=== PATIENT | male | born 1955 | race Caucasian/White ===

== ENCOUNTER 2024-10-25 19:51 | Inpatient (IN) | payer MEDICARE, OTHER, SELFPAY ==
[2024-10-25] VITALS (56 sets, daily range): BP systolic 70–174; BP diastolic 39–99; PULSE 2–84
[2024-10-25 14:46] LABS: B.E. 5.1 mmol/L; HCO3 31.2 mmol/L (21-28); O2 Saturation % 91.6 % (94-98); PCO2 54 mmHg (35-48); PO2 60 mmHg (83-108); pH 7.37 (7.35-7.45)
[2024-10-25 15:10] LABS: Venous Blood Gas HCO3 33.1 mmol/L (22-27); Venous Blood Gas O2 Sat % 66.8 %; Venous Blood Gas pH 7.27 (7.32-7.43); Venous Blood Gas pO2 42 mmHg (30-50)
[2024-10-25 15:11] LABS: % Basophils 0.1 % (0-2); % Immature Granulocytes 2.8 % (0-0.5); % Lymphocytes 6.7 % (20.5-51.1); % Monocytes 6.7 % (1.7-9.3); % Neutrophils 83.7 % (42.2-75.2); Absolute Immature Granulocytes 0.6 10^3/uL (0-0.05); Absolute Lymphocytes 1.5 10^3/uL (1.2-3.4); Absolute Monocytes 1.5 10^3/uL (0.1-0.6); Absolute Neutrophils 18.7 10^3/uL (1.4-6.5); Hematocrit 24.8 % (39.0-52.0); Hemoglobin 8.1 g/dL (13.0-18.0); Mean Corp Hgb Conc. 32.7 g/dL (33.0-37.0); Mean Corpuscular Hgb 32.3 pg (27.0-31.0); Mean Corpuscular Volume 98.8 fL (80.0-94.0); Mean Platelet Volume 12.7 fL (7.4-10.4); Nucleated Red Blood Cells % 0.6 % (-); Platelet Count 190 10^3/uL (130-400); Red Blood Cell Count 2.51 10^6/uL (4.70-6.10); Red Cell Dist. Width 16.4 % (11.5-14.5); White Blood Cell Count 22.4 10^3/uL (4.8-10.8)
[2024-10-25 15:12] LABS: Venous Blood Gas pCO2 72 mmHg (35-48)
--- NOTE | 2024-10-25 15:17 | ED.GENMED ---
History of Present Illness
General
Chief Complaint: Breathing Problem
Source: patient, ambulance crew and physician
Exam Limitations: clinical condition
Time Seen by Provider: 10/25/24 14:11
History of Present Illness
History of Present Illness:
68-year-old male who presents with difficulty breathing and change in mental status while at [facility]. EMS reports the patient was just discharged from [facility]. The patient has a history of COPD. Also has a history of
A-fib and PE. Is anticoagulated. EMS arrived to find the patient with some respiratory distress but also somewhat somnolent. They started him on BiPAP and he became a little more alert. Reportedly the patient did not wear his BiPAP last and
refused. He also has a history of mitral stenosis and CHF. Further history was obtained from a physician at [facility]. The patient had a BUN of reportedly of 80s and a white count that was baseline around 19,000. His creatinine
was 1.3. The patient is able to nod answers to questions but cannot give detailed history. He arrives in mild respiratory distress and somnolent but opens his eyes to commands
Past History
Past History
ED Past Medical History: Arrthythmia (Atrial fibrillation), CHF, COPD, Hypercholesterolemia, NIDDM, Valvular disease (Severe mitral stenosis) and Other (Renal insufficiency)
ED Past Surgical History: Cardiac
Phy Exam
Physical Exam
Physical Exam:
CONSTITUTIONAL Patient has his eyes closed and is somnolent but does respond to verbal stimuli. Does lift his arms to command. ill-appearing. Vital signs reviewed.
HEAD atraumatic, normocephalic.
EYES eyelids normal to inspection, Extraocular muscles intact, Conjunctiva normal, Sclera normal.
NECK Trachea midline, no jugular venous distention.
RESPIRATORY CHEST moderate respiratory distress noted, Chest expansion equal, Rales bilaterally
CARDIOVASCULAR regular with ectopy
ABDOMEN No distention.
UPPER EXTREMITY no cyanosis, mild bilateral edema.
LOWER EXTREMITY no cyanosis, mild bilateral edema. Significant ecchymosis noted bilaterally that is scattered
NEURO opens his eyes to commands. Lifts his arms to commands..
SKIN left flank ecchymosis noted, ecchymosis throughout extremities noted as well
Scores
Heart Failure Risk
Heart Failure Risk Score: Not Applicable
Course
Orders/Labs/Results
Orders:
Orders
10/25/24 14:18
Electrocardiogram (*1) Routine
Reason for Study: Shortness of Breath
10/25/24 14:19
EKG- Treatment ONCE
CXR Port [CR Chest Portable - 1 View] Urgent
Comment:
Reason For Exam: sob
Reason Study Needs to be Portable: Unable to Transport
10/25/24 14:23
Arterial Blood Gas Urgent
%Oxygen/Room Air: 15
BNP [NT-proBNP] Urgent
COVID-19 Antigen Urgent
Source: Nasal Swab
Complete Blood Count/With Diff Urgent
Comprehensive Metabolic Panel Urgent
Lactate Level [Lactic Acid] Urgent
Magnesium Urgent
Troponin I Urgent
Venous Blood Gas Urgent
%Oxygen/Room Air: 15
Blood Culture Urgent
ALESSANDRO Source: Blood/Venous
Specimen Description:
Date Specimen was Collected: 10/25/24
Time Specimen was Collected: 14:20
Influenza A+B Rapid Molecular Urgent
ALESSANDRO Source: Nasal Swab
Specimen Description:
10/25/24 15:06
Blood Culture Urgent
ALESSANDRO Source: Blood/Venous
Specimen Description:
10/25/24 15:18
Dexamethasone Sod Phosphate [Decadron] 10 mg IV NOW STA
Ipratropium/Albuterol Sulfate [Duoneb] 3 ml INH R NOW STA
10/25/24 15:21
PT/INR [Prothrombin Time] Urgent
10/25/24 15:43
CT Head W/o Iv Contrast Urgent
Comment:
Reason For Exam: change in MS
10/25/24 15:53
Venous Blood Gas Urgent
%Oxygen/Room Air: 15L
10/25/24 16:07
Cefepime HCl [Maxipime] 2,000 mg IV NOW STA
MetroNIDAZOLE 500 MG/100 ML [Flagyl 500 mg] 100 ml IV NOW
Vancomycin [Vancocin] 2,000 mg 0.9% Sodium Chloride 500 ml [Nss] 500 ml IV NOW
10/25/24 16:21
Sterile Water [Sterile Water For Injection] 20 ml .ROUTE .STK-MED
10/25/24 17:14
Echo 2D MMode Color/Doppler Routine
Reason for Study: CHF
10/25/24 17:52
Obtain Records As Directed
Dates of Information to be Released: 10/10/24 -10/24/24
Type of Information Requested: Entire Record
Obtain Records from: [facility]
10/25/24 18:43
Admit/Transfer Patient As Directed
Co-Sign Provider:
Level of Care: Inpatient admission
Assign to:: ICU
Physician / Group: Hospitalist
Diagnosis: Acute on Chronic Hypoxic Respiratory Failure
Reason for Hospitalization: Oxygen, BiPAP, IV Antibiotics
Expected length of stay greater than two midnights?: Yes
ELOS- Estimated Length of Stay in days: 3
I certify the patient meets the requirements for IP care: Yes
PRN Pain Medication Management As Directed
May give lesser potent ordered pain med per pt: Yes
preference::
Protocol:: Medication orders for pain may be administered in a
manner that supports deferring to patient preference
when the pt is:
- Requesting an ordered lesser potent pain medication.
Least to most potent pain medications are defined
as: acetaminophen < NSAID < tramadol < opioids
(morphine, oxycodone, hydromorphone).
- Requesting a lesser dose of the same medication IF
ORDERED.
- Requesting a less intrusive route of administration
if both routes are prescribed by the provider (PO <
IV).
10/25/24 18:45
Code Status As Directed
Resuscitation Status: Full Code
10/25/24 19:12
ECG [Electrocardiogram (*1)] Stat
Reason for Study: Atrial Fibrillation
10/25/24 19:19
Sputum Culture [Respiratory Culture/Gram Stain] Routine
ALESSANDRO Source: Sputum
Specimen Description:
10/25/24 19:28
Ammonia Stat
Troponin I Stat
10/25/24 19:36
CT Chest/abd/pel Wo Iv Cont Routine
Comment:
Reason For Exam: Abdominal pain, hypoxia
10/25/24 19:41
Type+Screen Urgent
Arterial Blood Gas Urgent
%Oxygen/Room Air: 15L on BiPAP 09/05
Urinalysis Reflex To Culture Urgent
Date Specimen was Collected: 10/25/24
Time Specimen was Collected: 19:38
Urine Microscopic Reflex Cult Urgent
10/25/24 21:54
Lactic Acid Q4H
Comment: repeat q4 hours x 4 or until less than 2 mmol/L
Troponin I Q6H
Blood Culture Q30M
ALESSANDRO Source: Blood/Venous
Specimen Description:
Comment: IF NOT OBTAINED IN ED
Acetaminophen [Tylenol/Feverall] 650 mg RECTAL Q6HPRN PRN
Cefepime HCl [Maxipime] 1,000 mg IV Q12H
Hydrocortisone Sod Succinate [Solu-Cortef] 50 mg IV NOW STA
Ondansetron Injectable [Zofran] 4 mg IV Q6HPRN PRN
VANCOMYCIN Pharmacy to Dose [VANCOCIN Pharmacy to Dose] 1 each Pharmacy To Prepare [Call Pharmacy To Prepare] 0 ml IV PER PROTOCOL
10/25/24 21:54
CARDIOLOGY CONSULT Routine
Consulting Provider: Anel Kraus
Was physician already notified: Yes
HEMATOLOGY CONSULT Routine
Consulting Provider: Ronna Varner
Was physician already notified: Yes
INFECTIOUS DISEASE CONSULT Routine
Consulting Provider: An Shea
Was physician already notified: Yes
Strategy Planning Consultant Consult Routine
Consulting Provider: Ananya Richey
Was physician already notified: Yes
NEPHROLOGY CONSULT Routine
Consulting Provider: Fay Odell
Was physician already notified: Yes
Urinalysis Urgent
Comment: IF NOT OBTAINED IN ED
Legionella Urinary Antigen Routine
ALESSANDRO Source: Urine
Specimen Description:
MRSA Screen Routine
ALESSANDRO Source: Nose
Specimen Description:
Strep pneumoniae Antigen Routine
ALESSANDRO Source: Urine
Specimen Description:
Activity As Directed
Activity Level: Bedrest
Arterial Line As Directed
Instructions:: - to pressure bag and transducer
Bearden Catheter [Catheter- Indwelling] As Directed
Reason for insertion: Acute Retention
Discontinue Date/Time: 10/28/24 0600
Intake/ Output As Directed
Frequency: Per unit guidelines
PICC Line As Directed
Pneumatic Compression Sleeves As Directed
Type: Knee high
Comment: Left Only
Vital Signs As Directed
Frequency: Per unit guidelines
Weight As Directed
Frequency: Daily
O2 Therapy [RESP] Routine
Titrate/Wean O2 to maintain O2 sat greater than (%): 90
DX Deep Vein Thrombosis Video Routine
10/25/24 22:24
Blood Culture Q30M
ALESSANDRO Source: Blood/Venous
Specimen Description:
Comment: IF NOT OBTAINED IN ED
10/25/24 22:30
Doxycycline Hyclate [Vibramycin] 100 mg 0.9% Sodium Chloride 250 ml [Nss] 250 ml IV ONCE
10/25/24 23:00
Metoprolol [Lopressor] 7.5 mg IV Q4
10/26/24 01:54
Lactic Acid Q4H
Comment: repeat q4 hours x 4 or until less than 2 mmol/L
10/26/24 03:54
Troponin I Q6H
10/26/24 05:54
Lactic Acid Q4H
Comment: repeat q4 hours x 4 or until less than 2 mmol/L
10/26/24 06:00
Echo 2D MMode Color/Doppler IN AM
Reason for Study: CHF
Electrocardiogram (*1) IN AM
Reason for Study: Atrial Fibrillation
NPO
Allow oral meds: No
Allow clear liquids: No
Arterial Blood Gas IN AM
%Oxygen/Room Air: 15L BiPAP 16/8
Complete Blood Count/With Diff IN AM
Comprehensive Metabolic Panel IN AM
Cortisol, Random IN AM
Protime/PTT IN AM
CR Chest Portable - 1 View IN AM
Comment:
Reason For Exam: Pneumonia
Reason Study Needs to be Portable: Unable to Transport
10/26/24 07:30
Insulin Aspart Corrective Mod [Novolog Flexpen-Moderate Resistance] See Protocol SC AC
10/26/24 08:00
Doxycycline Hyclate [Vibramycin] 100 mg 0.9% Sodium Chloride 250 ml [Nss] 250 ml IV Q12
Furosemide [Lasix] 60 mg IV DAILY
Pantoprazole [Protonix IV] 40 mg IV DAILY
10/26/24 09:54
Lactic Acid Q4H
Comment: repeat q4 hours x 4 or until less than 2 mmol/L
Troponin I Q6H
10/26/24 15:54
Troponin I Q6H
10/27/24 06:00
Complete Blood Count/With Diff IN AM
Comprehensive Metabolic Panel IN AM
Protime/PTT IN AM
10/27/24 08:00
Hydrocortisone Sod Succinate [Solu-Cortef] 50 mg IV Q8
10/28/24 06:00
Complete Blood Count/With Diff IN AM
Comprehensive Metabolic Panel IN AM
10/29/24 06:00
Complete Blood Count/With Diff IN AM
Comprehensive Metabolic Panel IN AM
10/30/24 06:00
Complete Blood Count/With Diff IN AM
Comprehensive Metabolic Panel IN AM
10/31/24 06:00
Complete Blood Count/With Diff IN AM
Comprehensive Metabolic Panel IN AM
11/01/24 06:00
Complete Blood Count/With Diff IN AM
Comprehensive Metabolic Panel IN AM
11/02/24 06:00
Complete Blood Count/With Diff IN AM
Comprehensive Metabolic Panel IN AM
11/03/24 06:00
Complete Blood Count/With Diff IN AM
Comprehensive Metabolic Panel IN AM
11/04/24 06:00
Complete Blood Count/With Diff IN AM
Comprehensive Metabolic Panel IN AM
Abnormal Lab Results
10/25/24 10/25/24 10/25/24
14:23 15:21 15:53
WBC 22.4 H 10^3/uL
(4.8-10.8)
RBC 2.51 L 10^6/uL
(4.70-6.10)
Hgb 8.1 L g/dL
(13.0-18.0)
Hct 24.8 L %
(39.0-52.0)
MCV 98.8 H fL
(80.0-94.0)
MCH 32.3 H pg
(27.0-31.0)
MCHC 32.7 L g/dL
(33.0-37.0)
RDW 16.4 H %
(11.5-14.5)
MPV 12.7 H fL
(7.4-10.4)
Abs Immat Gran (auto) 0.6 H 10^3/uL
(0-0.05)
Absolute Neuts (auto) 18.7 H 10^3/uL
(1.4-6.5)
Absolute Monos (auto) 1.5 H 10^3/uL
(0.1-0.6)
Immature Gran % 2.8 H %
(0-0.5)
Neutrophils % 83.7 H %
(42.2-75.2)
Lymphocytes % 6.7 L %
(20.5-51.1)
PT 17.5 H Sec
(11.4-14.6)
pCO2 54 H mmHg
(35-48)
pO2 60 L mmHg
(83-108)
HCO3 31.2 H mmol/L
(21-28)
ABG O2 Sat (Measured) 91.6 L %
(94-98)
VBG pH 7.27 L 7.31 L
(7.32-7.43) (7.32-7.43)
VBG pCO2 72 H* mmHg 62 H mmHg
(35-48) (35-48)
VBG pO2 55 H mmHg
(30-50)
VBG HCO3 33.1 H mmol/L 31.2 H mmol/L
(22-27) (22-27)
Sodium 132 L mmol/L
(135-145)
Chloride 93 L mmol/L
(98-107)
Carbon Dioxide 35 H mmol/L
(22-30)
BUN 97 H mg/dl
(9-20)
Creatinine 2.0 H mg/dL
(0.7-1.3)
Glucose 308 H mg/dl
(70-99)
Lactic Acid 2.2 H mmol/L
(0.7-2.0)
Magnesium 2.5 H mg/dl
(1.6-2.3)
Total Bilirubin 1.6 H mg/dl
(0.2-1.3)
AST 431 H U/L
(17-59)
ALT 330 H U/L
(0-50)
Troponin I 55.200 H* ng/ml
Total Protein 5.2 L g/dl
(6.3-8.2)
Albumin 3.3 L g/dl
(3.5-5.0)
Ur Occult Blood Reflex
Urine RBC
Urine Bacteria (Reflex)
Urine Albumin (Reflex)
10/25/24 10/25/24
19:28 19:41
WBC
RBC
Hgb
Hct
MCV
MCH
MCHC
RDW
MPV
Abs Immat Gran (auto)
Absolute Neuts (auto)
Absolute Monos (auto)
Immature Gran %
Neutrophils %
Lymphocytes %
PT
pCO2
pO2 61 L mmHg
(83-108)
HCO3 28.5 H mmol/L
(21-28)
ABG O2 Sat (Measured) 92.5 L %
(94-98)
VBG pH
VBG pCO2
VBG pO2
VBG HCO3
Sodium
Chloride
Carbon Dioxide
BUN
Creatinine
Glucose
Lactic Acid
Magnesium
Total Bilirubin
AST
ALT
Troponin I 46.800 H* ng/ml
Total Protein
Albumin
Ur Occult Blood Reflex 1+ A
(Negative)
Urine RBC 3-6 A /HPF
(0-2)
Urine Bacteria (Reflex) Few A
(Negative)
Urine Albumin (Reflex) 2+ A
(Neg - Trace)
10/25/24 14:23
10/25/24 14:23
Vital Signs
Initial and Last Documented VS:
Initial Vital Signs
Temp
98.9 F
10/25/24 14:10
Last Documented Vital Signs
Temp Pulse Resp BP Pulse Ox
98.9 F 108 28 93/52 95
10/25/24 14:10 10/25/24 22:30 10/25/24 22:30 10/25/24 21:19 10/25/24 15:47
MDM/Problems Addressed
MDM/Problems Addressed:
Hypercarbic respiratory failure, hypoxia, chronic anemia, leukocytosis, markedly elevated troponin
*Radiology
Radiology exam reviewed: radiology read reviewed
*Pulse Oximetry
Patient hypoxic: yes
*EKG
Interpreted by ED Provider?: Yes
Interpretation: abnormal
Rate: normal
Rhythm: atrial flutter
[place]: left axis deviation
QRS Pattern: right bundle branch block
Ischemia: non-specific ST changes
*[employer] Ground Crew Supervisor Interpretation
Rate: normal
Interpretation: abnormal
Rhythm: atrial flutter
*Critical Care Note
Total Time (30-74mins, 75-104mins- exclusive of procedures): 80 minutes
Data Reviewed
Review of Other/Old Records Reveals: Labs (Labs reviewed from [facility] via physician at the hospital)
Source: patient and family (Family does state that his troponin was elevated at [place].)
Patient Management
Discussion with other providers: Hospitalist
Escalation/DeEscalation of care consider admission/obs:
Multiple reassessments. Patient fortunately does respond to his name but still very somnolent. Suspect metabolic encephalopathy. Question related to sepsis versus hypercapnia versus a multitude of causes including pneumonia. initially
stated that his troponin was elevated at same area but he states she is unsure of the number. Troponin here markedly elevated. Patient reassessed with the hospitalist later and considered intubation. Family at bedside and obviously would only
like intubation if absolutely necessary. Difficult decision in light of the fact that it may be difficult to get him off. During my reassessment he is able to respond to his name and seems to be protecting his airway. Dialed down O2 for now
continue BiPAP. Admit ICU. Broad-spectrum IV biotics
ED Attending Note
-
Portions of this chart may have been created with voice recognition software.� Occasional wrong word or��sound alike� substitutions may have occurred due to the inherent limitations of voice recognition software.
Discharge Plan
Departure
Patient Disposition: Admit
Date of Disposition: 10/25/24
Time of Disposition: 16:20
Admit to: ICU
Presentation/result/management discussed w/ accepting MD/DO: Hospitalist
Discharge Problem:
Acute metabolic encephalopathy, Acute hypercapnic respiratory failure, Pneumonia, Sepsis, Acute on chronic renal insufficiency, Elevated troponin
Interventions
Interventions:
*Risk Screen - Suicide Last Done: 10/25/24 14:10
*General Assessment Last Done: 10/25/24 14:10
*Neglect/Abuse Screening Last Done: 10/25/24 14:10
ED- Fall Risk Assessment Last Done: 10/25/24 21:31
*ED COVID-19 Vaccine History Last Done: 10/25/24 14:10
*Nursing Disposition Last Done: 10/25/24 21:31
ED- Cardiac Assessment Last Done: 10/25/24 14:29
ED- Pulmonary Assessment Last Done: 10/25/24 14:27
Discharge Date and Time
Discharge Date/Time: 10/25/24 21:00
[2024-10-25 15:21] LABS: COVID-19 Antigen Negative (Negative)
[2024-10-25 15:23] LABS: Lactic Acid 2.2 mmol/L (0.7-2.0)
[2024-10-25 15:24] LABS: ALT (SGPT) 330 U/L (0-50); AST (SGOT) 431 U/L (17-59); Albumin 3.3 g/dl (3.5-5.0); Alkaline Phosphatase 122 U/L (38-126); Blood Urea Nitrogen 97 mg/dl (9-20); Calcium 9.7 mg/dl (8.4-10.2); Carbon Dioxide 35 mmol/L (22-30); Chloride 93 mmol/L (98-107); Glucose 308 mg/dl (70-99); Magnesium 2.5 mg/dl (1.6-2.3); Potassium 5.1 mmol/L (3.5-5.1); Sodium 132 mmol/L (135-145); Total Bilirubin 1.6 mg/dl (0.2-1.3); Total Protein 5.2 g/dl (6.3-8.2); eGFR 35.46
[2024-10-25 15:37] LABS: NT-proBNP 25200 pg/ml
[2024-10-25] MEDS: DUONEB 3 ML INH ×2 (15:42→22:30)
[2024-10-25 15:45] LABS: INR 1.41; PT 17.5 Sec (11.4-14.6)
[2024-10-25] MEDS: DECADRON 10 MG IV (15:56)
[2024-10-25 16:07] LABS: Venous Blood Gas B.E. 4.1 mmol/L (-4 to +4); Venous Blood Gas HCO3 31.2 mmol/L (22-27); Venous Blood Gas O2 Sat % 86.8 %; Venous Blood Gas pCO2 62 mmHg (35-48); Venous Blood Gas pH 7.31 (7.32-7.43); Venous Blood Gas pO2 55 mmHg (30-50)
[2024-10-25] MEDS: MAXIPIME 2000 MG IV (16:25)
[2024-10-25] MEDS: FLAGYL 500 MG 100 IV (16:36)
--- NOTE | 2024-10-25 17:13 | HPS.HSE ---
Addendum entered and electronically signed by Nabila Martinez MD 10/25/24 21:32:
I personally performed a history and physical exam of the patient and discussed management with the resident. I reviewed the resident's note and agree with the documented findings and plan of care HPI/CC.
GENERAL: well developed, well nourished, male not terribly responsive--on BiPAP
HEENT: NC/AT--BiPAP 16/8 on 15L O2
HEART: irreg irreg
LUNGS : clear to auscultation bilaterally
ABDOM: soft, tender lower abdomen without guarding or rebound, nondistended, + bowel sounds
EXT: no cyanosis, clubbing-- 2+ LE edema
NEUROLOGIC: lethargic--rouses to name but will not stay awake or follow commands
: circumcised male--diaper dry
SKIN: diffuse ecchymosis throughout arms/lags large one on left abdomen/flank
acute on chronic hypoxemic resp failure with encephalopathy--thought pt might be retaining CO2-- placed on BiPAP--no real improvement in mental status--head CT neg--consult pulm--admit to ICU--cont bipap, wean O2 as able--uses 4L through BiPAP at
home (settings are 07/07)--NPO for now--speech eval in AM
sepsis--likely due to pna--consult ID--cont vanco/zosyn/doxy--check urine strep and legionella--check blood, urine cultures--follow CXR and WBC count--no need for pressors at this time--stress dose steroids--await CT scans chest/abdomen/pelvis
NSTEMI/new aflutter/CHF unknown type/mitral stenosis/Aortic stenosis with bovine valve replacement--troponin 55 with pro BNP 25,000--trend troponin and EKG (not ACS or STEMI)--check ECHO--diuresis and follow creat--consult cards--hold oral
bumex--give IV lasix BID for now--change toprol XL to IV metoprolol with holding parameters
NATHANIEL on CKD stage unknown (baseline creat 1.3)--sinclair cath--hold IVF and BP adequate and needs diuresis--renal dose meds--consult renal
leukocytosis--likely due to sepsis/pna--follow for now--await heme input
anemia--likely of chronic disease--other than ecchymosis, no active bleeding noted--check ferritin, iron, TIBC, %sat, folate, B12 levels--await heme
hx of ITP?--platelets 'run low' per and needs steroids to increase them--await heme input
new diagnosis of RA--pt slow to get moving in the morning but by afternoon moving much better--not on DMARD therapy as yet
JOSE --likely chronic hypercapnia with metabolic compensation--HCO3 =38--blood gases being followed--pH 7.41 with pCO2 45--cont BiPAP, wean to outpt settings as able
type 2 DM--sugar 308--hold prandin--cont NPO--SSI, check HGB A1C
transaminitis--?due to sepsis, drugs?--consider checking hepatitis panels--await CT scans--pt does not drink ETOH
positive cologard test--outpt work up
gout--hold allopurinol
hypothyroid--check TSH--hold synthroid for now
prednisone dependent COPD/asthma--cont nebs as able--hold prednisone and do stress dose steroids
HLD--hold Lipitor for now
chronic pain with narcotic dependency?--? due to RA--hold percocet/tramadol--for now--limit narcotics--on stress dose steroids
HX of DVT/PE--hold xarelto for now--with ecchymosis, hold on IV heparin
skin graft to right leg from? cellulitis--wound care consult
hyponatremia--likely due to volume overload--follow with diuresis
Mechanical Fall w/ reported trauma to R chest wall- Unable to obtain proper history from patient due to encephalopathy-- explained pt had complaints of suprapubic pain and dysuria--Patient tender to palpation- large ecchymotic lesions on the R/L
flanks- Will obtain CT chest/Abd/pel w/o contrast due to NATHANIEL--will need PT/OT
DVT proph--SCD
code status--FULL CODE
need records from [facility]--hospitalized there after fall--10/10 through 10/24--sent from [facility]
Total Critical Care Time 3 hours. I was immediately available to the patient and staff. I personally examined, reviewed labs, diagnostic images/reports, interpretations, treatment plans, discussed patient care with other providers and family or
caregivers (if patient is unable to make decisions), entered orders as appropriate and documented the medical record.
Original Note:
Family Physician
-
Family Physician: Kavon Andres
Chief Complaint
-
Altered Mental Status
History of Present Illness
68 year old man who [facility] of altered [facility] status. The and son were at bedside and provided history.
The patient was admitted to [facility] on 10/10 after sustaining a mechanical fall and landing on his R side. He was taken to the [facility] where a CXR was done which revealed pneumonia. He was kept and treated for pneumonia with
antibiotics and steroids for his history of COPD. While in [facility] he was found to have Afib which was a new diagnosis. He was put on blood thinners. The decision was made to discharge him on 10/24/24 to [facility] for rehab. The
states that she gave him all his usual medications in the evening and he was kept on BiPAP. The and son returned in the morning on the day of presentation to find the patient was disoriented and minimally responsive with altered mental status
and so he was brought to .
They report as well that he had a recently positive cologuard test for which they had scheduled a follow up with for 10/10/24, however they never went because the patient had a fall and was admitted to [facility].
The also reports that the patient was complaining of lower abdominal pain when urinating. They report that he had a catheter in during his hospitalization but she is not sure why. he d
Medical History
Past Medical History
Past Medical History: Reports Arrhythmia, CAD, CHF, COPD, HTN, Hypercholesterolemia, Hypothyroidism, NIDDM and Renal Failure
Additional Past Medical History:
History of PE, Sleep Apnea, GERD, RBBB, Prosthetic Valve
Past Surgical History: Reports Other
Additional Past Surgical History:
Aortic Valve Replacement, Coronary Artery Stenting 2016
Social History
Tobacco: Smoker (>50 ppy)
Alcohol: None
Drug: None
Personal:
Living: With Family
Family History
Family History: Not pertinent
Allergies / Home Medications
Allergies reflects when Allergies were last updated in [facility].
Home Medications with original date entered in [facility]
Allergy/Medication List:
Allergies
Allergy/AdvReac Type Severity Reaction Status Date / Time
hydromorphone [From Dilaudid] Allergy Unknown Verified 10/25/24 15:47
Home Medications
acetaminophen 325 mg tablet (Tylenol) 650 mg PO Q6HPRN PRN mild pain 10/25/24
albuterol sulfate 90 mcg/actuation aerosol inhaler 2 puff inhalation R Q6HPRN PRN sob 10/25/24
allopurinol 300 mg tablet 300 mg PO DAILY 10/25/24
aspirin 325 mg tablet 325 mg PO DAILY 10/25/24
atorvastatin 40 mg tablet (Lipitor) 40 mg PO HS 10/25/24
bisacodyl 10 mg rectal suppository (Dulcolax (bisacodyl)) 10 mg NM DAILYPRN PRN if no bm aftr mom 10/25/24
bumetanide 1 mg tablet 3 mg PO DAILY 10/25/24
cholecalciferol (vitamin D3) 10 mcg (400 unit) tablet (Vitamin D3) 10 mcg PO DAILY 10/25/24
coQ10 (ubiquinol) 100 mg capsule 30 mg PO DAILY 10/25/24
diltiazem HCl 120 mg capsule,extended release 24 hr 120 mg PO DAILY 10/25/24
docusate sodium 100 mg capsule (Colace) 100 mg PO DAILY 10/25/24
ferrous sulfate 325 mg (65 mg iron) tablet 325 mg PO DAILY 10/25/24
gabapentin 300 mg capsule 300 mg PO TID 10/25/24
levothyroxine 125 mcg tablet (Synthroid) 125 mcg PO DAILY 10/25/24
magnesium hydroxide 400 mg/5 mL oral suspension (Milk of Magnesia) 2,400 mg PO DAILYPRN PRN i fno bm by 3rd day 10/25/24
magnesium oxide 400 mg PO DAILY 10/25/24
metoprolol succinate 100 mg tablet,extended release 24 hr (Toprol XL) 100 mg PO BID 10/25/24
ondansetron HCl 4 mg tablet 4 mg PO Q8HPRN PRN nausea 10/25/24
oxycodone-acetaminophen 10 mg-325 mg tablet (Percocet) 1 tab PO Q6HPRN PRN severe pains 10/25/24
pantoprazole 40 mg tablet,delayed release (Protonix) 40 mg PO DAILY 10/25/24
polyethylene glycol 3350 17 gram oral powder packet (Miralax) 17 g PO DAILYPRN PRN constipation 10/25/24
prednisone 10 mg tablet 40 mg PO DAILY 10/25/24
prednisone 10 mg tablets in a dose pack 10 mg PO DIRECTED 10/25/24
repaglinide 1 mg tablet 1 mg PO DAILYPRN PRN if bs above 250 10/25/24
rivaroxaban 15 mg tablet (Xarelto) 15 mg PO DAILY 10/25/24
sodium phosphates 19 gram-7 gram/118 mL enema (Fleet Enema) 118 ml NM DAILYPRN PRN if no bm aftr dulcolax 10/25/24
sucralfate 1 gram tablet (Carafate) 1 g PO BID 10/25/24
therapeutic multivitamin 1 tab PO DAILY 10/25/24
tramadol 50 mg tablet 50 mg PO Q8HPRN PRN moderate pains 10/25/24
zolpidem 12.5 mg tablet,extended release,multiphase (Ambien CR) 12.5 mg PO HSPRN PRN sleep 10/25/24
Review of Systems
-
Unable to obtain full review of systems at this time due to: Other (Patient unstable and minimally responsive)
History Source: Patient and Family
A 12 point ROS was completed and negative except as noted: Yes
Constitutional: Denies Fever, Night Sweats or Chills
EENT: Denies Sore Throat or Runny Nose
Respiratory: Reports Trouble Breathing; Denies Cough or Hemoptysis
Cardiac: Denies Chest Pain, Diaphoresis or Palpitations
Abdomen/GI: Reports Abdominal Pain; Denies Nausea, Vomiting or Diarrhea
: Reports Dysuria and Sinclair
Musculoskeletal: Reports Edema; Denies Joint Swelling or Muscle Pain
Skin: Reports No Symptoms
Neurological: Denies Headache or Numbness
Endocrine: Reports No Symptoms
Hematologic/Lymphatic: Reports Bruising
Psych: Reports No Symptoms
Physical Exam
Vital Signs
Vital Signs
Pulse Resp BP Pulse Ox
74 18 104/56 95
10/25/24 16:30 10/25/24 16:30 10/25/24 16:30 10/25/24 15:47
Physical Exam
General: Well Developed, Well Nourished, Respiratory Distress, Appears Chronically Ill and Obese; No Fever or Chills
HEENT: NormoCephalic, Anicteric, Atraumatic, PERRLA, Nose Appears Normal, Ears Appear Normal and Oxygen (BiPAP 15L)
Respiratory: Wheezes, Accessory Resp Muscle Use and Other (BiPAP, asynchronous breaths); No Rales
Cardiac: S1/S2 and Irregular Rhythm; No Murmur or Rub
Breast: N/A
GI: Soft, Normal Bowel Sounds, Tender and Distended
Rectal: Deferred by Provider
Genito-urinary: Other (Distended bladder)
Musculoskeletal: No Clubbing, No Cyanosis, Edema, Left Lower Extremity and Edema, Right Lower Extremity
Skin: Warm, Dry, IV/Catheter Site and Other (Scattered ecchymosis on the BL UE with two very large ecchymotic lesions on the BL flanks extending towards the midline)
Neuro: Awake and Oriented (Oriented to Place only)
Hematologic/Lymphatic: Other (No inguinal lymphadenopathy)
Laboratory Results
-
10/25/24 14:23
10/25/24 14:
Laboratory Results
PT 17.5 Sec (11.4-14.6) H 10/25/24 15:21
INR 1.41 10/25/24 15:21
pH 7.37 (7.35-7.45) 10/25/24 14:
pCO2 54 mmHg (35-48) H 10/25/24 14:
pO2 60 mmHg (83-108) L 10/25/24 14:
HCO3 31.2 mmol/L (21-28) H 10/25/24 14:23
Lactic Acid 2.2 mmol/L (0.7-2.0) H 10/25/24 14:
Total Bilirubin 1.6 mg/dl (0.2-1.3) H 10/25/24 14:23
AST 431 U/L (17-59) H 10/25/24 14:23
ALT 330 U/L (0-50) H 10/25/24 14:
Alkaline Phosphatase 122 U/L (38-126) 10/25/24 14:23
Troponin I 55.200 ng/ml H* 10/25/24 14:23
Impression/Plan
-
68 year old male with a complex past medical history who is not known to DH
#Acute on Chronic Hypoxic Respiratory Failure
- On BiPAP at home (4L, 14/10), requiring 10L, 16/8 right now. S/p x1 duoneb in ED
- VBG on admission showed PCO2 72 w/ PH of 7.27; repeat ABG after several hours on BiPAP showing 45 w/ pH of 7.41.
- Minimally responsive on current BiPAP, however saturations are 90s
- Will admit to ICU, unclaimed property officer consulted
- repeat ABG tonight and in the AM.
#Altered Mental Status, possibly secondary to Hypercapnia from AHRF
- Head CT showing no acute intracranial abnormalities.
- mentation somewhat improved on BiPAP.
- Ammonia levels pending
#Possible NSTEMI
#H/o Coronary Artery Stenting
- Troponins elevated to 55; repeat pending.
- ECG showing rate controlled A flutter. Repeat ECG showing the same. Will repeat ECG in the am.
- Cardiology following.
#Acute Exacerbation of CHF
#Severe Mitral Valve Stenosis
- no prior echo, on 3mg Bumex as outpatient, pitting edema on exam, ProBNP 12496, will obtain Echo in the AM.
- 60mg IV Lasix qd
- Cardiology and nephro following
#Sepsis, likely secondary to Pneumonia
- patient w/ leukocytosis, lactic acidosis, tachypnea on presentation with possible source of infection (PNA)
- BCx and Sputum cultures pending. UA pending.
- Given one dose of IV Vancomycin/Cefepime/Flagyl. Now on IV Doxy (for NPO), Vancomycin, and Cefepime 1gm q12 for CrCl of 21.
- COVID/Flu (-), pending urine strep/legionella/MRSA
- Holding fluids in the setting of likely CHF exacerbation
- ID Following
#Pneumonia, likely present on admission - H/o hospitalization for PNA at [facility] (will obtain records). CXR showing Mid LL and RLL consolidation. On Abx as above. Follow cultures as above.
#Paroxysmal Afib
- ECG shows rate control, will repeat in the AM.
- Holding home meds as patient is NPO.
- Will start on IV Lopressor 7.5mg Q4
- Cardiology following
#NATHANIEL on CKD, likely multifactorial (post/pre renal)
- Parking Supervisor reportedly 1.3 at [facility], in ED 2.0. BUN 97.
- UA pending.
- nephro following; OK for diuresis as above.
- Will place Sinclair
- Check CMP in the AM
#Abdominal/Suprapubic Pain?
#Mechanical Fall w/ reported trauma to R chest wall
- Unable to obtain proper history from patient due to AMS. explained pt had complaints of suprapubic pain and dysuria. Patient tender to palpation in the RUQ.
- large ecchymotic lesions on the R/L flanks
- Will obtain CT chest/Abd/pel w/o contrast due to NATHANIEL
#Possible Colonic Neoplasm? - reports a positive cologuard test. Had follow up scheduled for 10/10/24, however never went due to prior hospitalization at [facility].
#NIDDM - Glucose on admission 308. Holding oral antiglycemic agents at this time. patient not one home insulin and NPO. Will start on MDISS.
#Anemia - Hgb 8.1 on admission; no prior lab values. Pending records from [facility]. Will transfuse if Hgb <7. patient's consented.
#Transaminitis, cause uncertain - Tbili/AST/ALT 1.6/431/330. Unclear history. Could be component of sepsis vs. hepatobiliary pathology vs. iatrogenic. Will continue to monitor.
#COPD - On chronic prednisone as outpatient. Given Decadron in ED. Will continue with stress dose steroids Hydrocortisone 50mg q8. Still on BiPAP. Will hold Duonebs/Albuterol for now.
#Essential Hypertension - holding home medications due to NPO. On Lopressor IV. Cardiology following.
#Sleep Apnea - On BiPAP.
#Rheumatoid Arthritis - not on DMARDs
#Gout - holding allopurinol
#Hypothyroidism - holding levothyroxine
#H/o Nephrolithiasis
#H/o PE
Diet - NPO
DVT PPx - Rectal Aspirin for tonight, will re-evaluate in AM
Code Status - Full Code
[2024-10-25] MEDS: VANCOCIN 540 MG IV (18:45)
[2024-10-25 19:56] LABS: B.E. 3.4 mmol/L; HCO3 28.5 mmol/L (21-28); O2 Saturation % 92.5 % (94-98); PCO2 45 mmHg (35-48); PO2 61 mmHg (83-108); pH 7.41 (7.35-7.45)
[2024-10-25 20:36] LABS: Ammonia 12 umol/L (9-30)
[2024-10-25 21:15] LABS: Urine Albumin 2+ (Neg - Trace); Urine Bilirubin Negative (Negative); Urine Character Clear (Clear); Urine Color Yellow; Urine Glucose Negative (Negative); Urine Ketone Negative (Negative); Urine Leukocyte Negative (Negative); Urine Nitrite Negative (Negative); Urine Occult Blood 1+ (Negative); Urine Urobilinogen 1+ (Neg - 1+)
[2024-10-25 21:48] LABS: Urine Bacteria Few (Negative); Urine Hyaline Cast >15 /LPF (0-2); Urine White Cell 0-2 /HPF (0-5)
--- NOTE | 2024-10-25 22:21 | W.PN.ANESINT ---
Anesthesia Intubation Note
- Intubation Note
Intubation Note:
Diagnosis: Cardiac Arrest
Blade: glidescope
Tube Size: 8.0 hilo
Depth: 24 cm @lip
Side Taped: right
Drugs Used: none , CPR in progress upon arrival, unresponsive
Grade View: 2
EtCO2 Present: yes
Atraumatic: yes
Attempts: 1
Insertion Start and Stop Time: 22:08-22:09
SaO2 Pre: none
SaO2 Post: 91
Glidescope Used: yes
Other Airway Adjustments: none
Pre-Oxygenated: yes
Portable Chest X-Ray: yes
RSI: yes
Suctioned: yes
Bilateral Breath Sounds Confirmed: yes
Vent Settings:
Settings per ___Attending Physician
--- NOTE | 2024-10-25 22:26 | PHA.VAN.IN ---
Assessment
- Assessment
Renal Function: Unknown baseline (SCR reported as ~1.3 at OSH - SCR currently elevated at 2)
Concomitant Antimicrobials: cefepime, doxycycline
Plan
- Plan
Initial / Loading Dose: 2000mg - 10/25 18:45
Maintenance Regimen: dosing by level
Monitoring: random 10/26 0600
MRSA Screen: Ordered per protocol
Pharmacokinetics Vancomycin I
- -
Patient Age: 68
Patient Sex: Male
Vancomycin Day #: 1
Indication: Pulmonary/Respiratory
Requesting Provider: Dr. Rose (resident)
Pertinent Antimicrobial Allergies:
no pertinent antibiotic allergies
Height / Weight:
Height 5 ft 6 in
Actual Weight 93 kg
Pertinent Past Medical History: BMI ~33, COPD (prednisone), DM, s/p CPR 10/25/24
- Vital Signs / Lab Results
Temp Pulse Resp BP Pulse Ox
98.9 F 89 31 93/52 95
10/25/24 14:10 10/25/24 21:19 10/25/24 21:19 10/25/24 21:19 10/25/24 15:47
Lab Results - Hematology
10/25/24
14:23
WBC 22.4 H
Lab Results - Chemistry
10/25/24
14:23
BUN 97 H
Creatinine 2.0 H
Albumin 3.3 L
10/25/24
14:23
Lactic Acid 2.2 H
Lab Results - Urine
10/25/24
19:41
Urine Nitrite (Reflex) Negative
Leukocyte Esterase Rfl Negative
Urine WBC (Reflex) 0-2
Ur Squamous Epith Cells 3-5
Urine Bacteria (Reflex) Few A
Microbiology Results
10/25/24 14:23 Influenza Types A & B (KEN) - Final
Nasal Swab Negative for Influenza A & B, NAAT
Negative results must be combined with clinical observations
and patient history.
Nucleic Acid Amplification test (NAAT)performed on the
[employer] NOW platform.
[2024-10-25] MEDS: LEVOPHED 250 IV (22:38)
[2024-10-25] MEDS: SOLU-CORTEF 50 MG IV (22:45)
[2024-10-25 22:47] LABS: Hematocrit 23.3 % (39.0-52.0); Hemoglobin 7.6 g/dL (13.0-18.0); Mean Corp Hgb Conc. 32.6 g/dL (33.0-37.0); Mean Corpuscular Hgb 32.8 pg (27.0-31.0); Mean Corpuscular Volume 100.4 fL (80.0-94.0); Mean Platelet Volume 12.4 fL (7.4-10.4); Platelet Count 141 10^3/uL (130-400); Red Blood Cell Count 2.32 10^6/uL (4.70-6.10); Red Cell Dist. Width 16.5 % (11.5-14.5); White Blood Cell Count 29.5 10^3/uL (4.8-10.8)
[2024-10-25 22:51] LABS: Lactic Acid 9.8 mmol/L (0.7-2.0)
[2024-10-25 22:52] LABS: Blood Urea Nitrogen 101 mg/dl (9-20); Calcium 8.6 mg/dl (8.4-10.2); Carbon Dioxide 23 mmol/L (22-30); Chloride 94 mmol/L (98-107); Estimated Creatinine Clearance 32 ml/min; Glucose 288 mg/dl (70-99); Magnesium 2.9 mg/dl (1.6-2.3); Potassium 6.7 mmol/L (3.5-5.1); Sodium 131 mmol/L (135-145); eGFR 29.99
[2024-10-25] MEDS: VIBRAMYCIN 260 MG IV (23:03)
[2024-10-25] MEDS: DEXTROSE 50% SYRINGE 25 GRAMS IV (23:17)
[2024-10-25] MEDS: SUBLIMAZE 50 MCG IV (23:17)
[2024-10-25] MEDS: NOVOLIN R 10 UNITS IV (23:17)
[2024-10-25 23:25] LABS: Glucose - Point of Care 308 mg/dl (70-99)
[2024-10-26] VITALS (27 sets, daily range): BP systolic 94–148; BP diastolic 40–88; BMI 31.7
[2024-10-26 00:07] LABS: Glucose - Point of Care 359 mg/dl (70-99)
--- NOTE | 2024-10-26 00:10 | W.PN.UPDATE ---
Update Note
Progress Note Update
2200 Code call: On arrival CPR started, receiving round one of CPR, pulse check resulting in continue asystole, �another round of CPR, EPI given, and intubated. ROSC regain after second round of CPR. �
�
According to nurse patient arrived confused on Bipap, while doing wound care, blood pressure and pulse ox decrease, a patient then went asystolic on monitor. �CPR started.
2300 updated. According to nurse patient was able to responded to her when calling his name.
�
[2024-10-26] MEDS: NOVOLIN R 8 UNITS IV (00:47)
[2024-10-26] MEDS: NOVOLIN R INSULIN INFUSION 100 IV ×3 (00:49→07:37)
[2024-10-26] MEDS: STERILE WATER FOR INJECTION 10 ML IV (00:50)
[2024-10-26] MEDS: MAXIPIME 1000 MG IV (00:50)
[2024-10-26 00:53] LABS: B.E. -8.1 mmol/L; HCO3 17.8 mmol/L (21-28); O2 Saturation % 98.9 % (94-98); PCO2 37 mmHg (35-48); PO2 234 mmHg (83-108); pH 7.29 (7.35-7.45)
[2024-10-26 00:54] LABS: O2 Therapy 2L NC
--- NOTE | 2024-10-26 01:02 | VATNOTE ---
PICC ORDERED IN EMR. SPOKE AT BEDSIDE WITH PCN . NO NEED FOR CVAD AT THIS TIME. PT WITH ADEQUATE IV ACCESS. WILL INSERT ML FOR ADDITIONAL ACCESS AND LAB DRAWS NEEDED. CONFIRMED WITH ZIG ZAG SPRING MACHINE OPERATOR. ML INSERTED DOCUMENTED.
[2024-10-26 02:08] LABS: Glucose - Point of Care 267 mg/dl (70-99)
--- NOTE | 2024-10-26 03:09 | PTCARENOTE ---
Late entry: Pt arrived to ICU room 3361 via stretcher at approx 2110. Received pt on Bipap 8 with O2 at 10LPM. Pt confused, able to state his full name and birthday but not oriented to place/time/situation. Not making appropriate conversation but
would verbalize when he was in pain when wound care being done, stated that his ring was hurting him (wedding band--since removed and given to pt's ). Difficult to obtain accurate pulse ox reading when he first arrived due to cold extremities,
would intermittently merchandise pickup/receiving associate and read in low 90s and then disappear, multiple pulse ox probes and sites tried. Physical assessment completed (see nursing shift assessment flowsheet for full details), new IV placed. Pt's BP then started reading
lower, which had not been an issue before--reading in 60s-70s systolic. Briefly left room to get some more supplies and upon returning, pt's monitor started alarming asystole. No pulse found. CPR started and Code 9 called at 2200. Two rounds of CPR
done, 1 epi given and ROSC achieved. Pt intubated with #8 ETT, 24cm at lip. Initial vent settings AC 20/500/100/5, RR turned down to 12 shortly afterwards. Levophed started at 2238 d/t hypotension, goal to keep MAP >65. Repeat labs had been obtained
just after achieving ROSC. K+ critically high, insulin + D50 given (see EMAR). Pt's blood sugar high, insulin drip started per critical care glycemic protocol (see flowsheet for details). VAT team at bedside and placed RUE midline.
[2024-10-26 03:13] LABS: Glucose - Point of Care 350 mg/dl (70-99)
[2024-10-26] MEDS: SUBLIMAZE 100 IV ×2 (03:58→21:44)
[2024-10-26] MEDS: SUBLIMAZE 50 MCG IV ×4 (03:58→18:33)
[2024-10-26 04:13] LABS: Hematocrit 21.9 % (39.0-52.0); Hemoglobin 7.1 g/dL (13.0-18.0); Mean Corp Hgb Conc. 32.4 g/dL (33.0-37.0); Mean Corpuscular Hgb 32.3 pg (27.0-31.0); Mean Corpuscular Volume 99.5 fL (80.0-94.0); Platelet Count 133 10^3/uL (130-400); Red Cell Dist. Width 16.3 % (11.5-14.5); White Blood Cell Count 30.2 10^3/uL (4.8-10.8)
[2024-10-26 04:18] LABS: Glucose - Point of Care 310 mg/dl (70-99)
--- NOTE | 2024-10-26 04:20 | W.PN.UPDATE ---
Update Note
Progress Note Update
Procedure Note: Arterial Line�
� Left Wrist Arrow 20 (11/25)�
Diagnosis:��Cardiac arrest, sepsis
IV Line Comments: Uneventful Procedure�
Yong's test completed pre-procedure: Yes�
A-Line Comments: Sterile technique as per standard protocol, Ultrasound guided insertion�
Functioning A-line in situ: Yes�
A-line Insertion Start Time:�0400�
A-line in at:��0405
[2024-10-26 04:27] LABS: APTT 40.4 Sec (23.4-35.0); INR 2.41; PT 26.3 Sec (11.4-14.6)
[2024-10-26 04:29] LABS: Lactic Acid 6.1 mmol/L (0.7-2.0)
[2024-10-26 04:55] LABS: Albumin 2.8 g/dl (3.5-5.0); Alkaline Phosphatase 117 U/L (38-126); Blood Urea Nitrogen 109 mg/dl (9-20); Calcium 8.8 mg/dl (8.4-10.2); Carbon Dioxide 23 mmol/L (22-30); Chloride 97 mmol/L (98-107); Estimated Creatinine Clearance 27 ml/min; Glucose 268 mg/dl (70-99); Iron 162 ug/dl (49-181); Magnesium 2.6 mg/dl (1.6-2.3); Percent Saturation 68 % (20-50); Phosphorus 6.4 mg/dl (2.5-4.5); Potassium 5.1 mmol/L (3.5-5.1); Sodium 133 mmol/L (135-145); Total Bilirubin 2.9 mg/dl (0.2-1.3); Total Iron Binding Capacity 238 ug/dl (261-462); Total Protein 4.9 g/dl (6.3-8.2); eGFR 24.74
[2024-10-26 05:02] LABS: TSH Reflex To Free T4 1.05 uIU/ml (0.47-4.68)
[2024-10-26 05:14] LABS: ALT (SGPT) > 7500 U/L (0-50); AST (SGOT) > 7500 U/L (17-59)
[2024-10-26 05:35] LABS: Glucose - Point of Care 286 mg/dl (70-99)
[2024-10-26 05:37] LABS: Folate > 20.0 ng/ml (2.76-20); Vitamin B12 > 1000 pg/ml (239-931)
[2024-10-26 05:44] LABS: Cortisol, Random 90.9 ug/dl
[2024-10-26 05:53] LABS: B.E. 0.7 mmol/L; HCO3 26.5 mmol/L (21-28); PCO2 48 mmHg (35-48); PO2 167 mmHg (83-108); pH 7.35 (7.35-7.45)
[2024-10-26 05:55] LABS: O2 Therapy 15L BiPAP 16/8
--- NOTE | 2024-10-26 06:19 | CON.INTV ---
Consultation
Consultation Request
Date/Time Consultation Requested: 10/25
Date/Time Consultation Performed: 10/26
Reason for Consultation: Critical care
Medical History
-
History of Present Illness:
History obtained from the chart and also some history from the , and reviewing medical records. Patient is a 68-year-old male with complex medical history, history of valvular disease mitral stenosis, aortic stenosis status post valve
replacement in the past, chronic kidney disease, recent fall with hospital stay at [facility] for 2 weeks, coronary disease, diabetes, history of pulm embolism, sleep apnea, right bundle branch block who was brought to [facility]
after change in mental status. Patient apparently was hospitalized at [facility], recently discharged 10/24/24. states that despite being at [facility] for 2 weeks, he was far from being back to his baseline. Prior to going to [facility], he was essentially bedbound, uses a chairlift to go up the steps, had a rollator. He initially went to [facility] because of a fall. He was brought to [facility] from the retirement because of mental status changes.
states that he normally takes Ambien and is on a BiPAP. Upon arrival to [facility], afebrile, pulse 108, breathing at 20, blood pressure 93/52, 95%. Troponin noted to be elevated at 55. Per ED records, family only wanted intubation if
absolutely necessary as intubation was being considered in the ED. Patient developed respiratory arrest and asystole at around 10:00 at night requiring CPR, 2 rounds of epinephrine with ROSC, Patient intubated. It is noted the patient has been
oozing from multiple sites
He is on chronic steroids according to for his COPD. He was also recently diagnosed with rheumatoid arthritis while at [facility]
He has had issues with chronic wounds, skin graft, unfortunate continues to smoke
.
PMH: Hypertension, hyperlipidemia, coronary disease coronary stent 2016,diabetes, history of chronic kidney disease III, history of pulm embolism 04/2024, hx of LLE cellulitis chronic wounds with skin graft, sleep apnea, valvular disease with
prosthetic valve in the past aortic valve replacement 2017 at [facility], hx of falls, COPD/Asthma, hypothyroidism, hx of RA per blood work.
Past Medical History
Past Medical History: None (see above)
Past Surgical History: None (see above)
Social History
Tobacco: Smoker (50+ pack year, still smokes about 6 cigarettes a day)
Alcohol: None
Drug: None
Personal:
Living: With Family and [facility] (presently at [place] )
Employment: Retired
Family History
Family History: Unable to Obtain
Allergies / Home Medications
Allergies
Allergy/AdvReac Type Severity Reaction Status Date / Time
hydromorphone [From Dilaudid] Allergy Unknown Verified 10/25/24 15:47
Home Medications
�Medication �Instructions �Recorded �Confirmed �Last Taken �Type
acetaminophen 325 mg tablet 650 mg PO Q6HPRN PRN mild pain 10/25/24 10/25/24 Unknown History
(Tylenol)
albuterol sulfate 90 mcg/actuation 2 puff inhalation R Q6HPRN PRN sob 10/25/24 10/25/24 Unknown History
aerosol inhaler
allopurinol 300 mg tablet 300 mg PO DAILY 10/25/24 10/25/24 Unknown History
aspirin 325 mg tablet 325 mg PO DAILY 10/25/24 10/25/24 Unknown History
atorvastatin 40 mg tablet (Lipitor) 40 mg PO HS 10/25/24 10/25/24 Unknown History
bisacodyl 10 mg rectal suppository 10 mg CA DAILYPRN PRN if no bm 10/25/24 10/25/24 Unknown History
(Dulcolax (bisacodyl)) aftr mom
bumetanide 1 mg tablet 3 mg PO DAILY 10/25/24 10/25/24 Unknown History
cholecalciferol (vitamin D3) 10 10 mcg PO DAILY 10/25/24 10/25/24 Unknown History
mcg (400 unit) tablet (Vitamin D3)
coQ10 (ubiquinol) 100 mg capsule 30 mg PO DAILY 10/25/24 10/25/24 Unknown History
diltiazem HCl 120 mg 120 mg PO DAILY 10/25/24 10/25/24 Unknown History
capsule,extended release 24 hr
docusate sodium 100 mg capsule 100 mg PO DAILY 10/25/24 10/25/24 Unknown History
(Colace)
ferrous sulfate 325 mg (65 mg 325 mg PO DAILY 10/25/24 10/25/24 Unknown History
iron) tablet
gabapentin 300 mg capsule 300 mg PO TID 10/25/24 10/25/24 Unknown History
levothyroxine 125 mcg tablet 125 mcg PO DAILY 10/25/24 10/25/24 Unknown History
(Synthroid)
magnesium hydroxide 400 mg/5 mL 2,400 mg PO DAILYPRN PRN i fno bm 10/25/24 10/25/24 Unknown History
oral suspension (Milk of Magnesia) by 3rd day
magnesium oxide 400 mg PO DAILY 10/25/24 10/25/24 Unknown History
metoprolol succinate 100 mg 100 mg PO BID 10/25/24 10/25/24 Unknown History
tablet,extended release 24 hr
(Toprol XL)
ondansetron HCl 4 mg tablet 4 mg PO Q8HPRN PRN nausea 10/25/24 10/25/24 Unknown History
oxycodone-acetaminophen 10 mg-325 1 tab PO Q6HPRN PRN severe pains 10/25/24 10/25/24 Unknown History
mg tablet (Percocet)
pantoprazole 40 mg tablet,delayed 40 mg PO DAILY 10/25/24 10/25/24 Unknown History
release (Protonix)
polyethylene glycol 3350 17 gram 17 g PO DAILYPRN PRN constipation 10/25/24 10/25/24 Unknown History
oral powder packet (Miralax)
prednisone 10 mg tablet 40 mg PO DAILY 10/25/24 10/25/24 10/25/24 History
prednisone 10 mg tablets in a dose 10 mg PO DIRECTED 10/25/24 10/25/24 Unknown History
pack
repaglinide 1 mg tablet 1 mg PO DAILYPRN PRN if bs above 10/25/24 10/25/24 Unknown History
250
rivaroxaban 15 mg tablet (Xarelto) 15 mg PO DAILY 10/25/24 10/25/24 Unknown History
sodium phosphates 19 gram-7 118 ml CA DAILYPRN PRN if no bm 10/25/24 10/25/24 Unknown History
gram/118 mL enema (Fleet Enema) aftr dulcolax
sucralfate 1 gram tablet (Carafate) 1 g PO BID 10/25/24 10/25/24 Unknown History
therapeutic multivitamin 1 tab PO DAILY 10/25/24 10/25/24 Unknown History
tramadol 50 mg tablet 50 mg PO Q8HPRN PRN moderate pains 10/25/24 10/25/24 Unknown History
zolpidem 12.5 mg tablet,extended 12.5 mg PO HSPRN PRN sleep 10/25/24 10/25/24 Unknown History
release,multiphase (Ambien CR)
Review of Systems
Vitals / Labs / Diagnostic Testing
Vital Signs
Temp Pulse Resp BP Pulse Ox
99.4 F 77 12 113/57 100
10/26/24 05:25 10/26/24 05:00 10/26/24 05:00 10/26/24 04:00 10/26/24 05:00
Lab Data
10/26/24 03:43
10/26/24 03:44
Laboratory Results
10/25/24 10/25/24 10/25/24
14:23 15:21 19:41
PT 17.5 H
INR 1.41
APTT
pH 7.37 7.41
pCO2 54 H 45
pO2 60 L 61 L
HCO3 31.2 H 28.5 H
O2 Delivery Level
10/26/24 10/26/24 10/26/24
00:45 03:44 05:41
PT 26.3 H
INR 2.41
APTT 40.4 H
pH 7.29 L 7.35
pCO2 37 48
pO2 234 H 167 H
HCO3 17.8 L 26.5
O2 Delivery Level 2l nc 15l bipap 09/05
Microbiology
10/25/24 14:23 Nasal Swab Influenza Types A & B (KEN) - Final
Negative for Influenza A & B, NAAT
Negative results must be combined with clinical observations
and patient history.
Nucleic Acid Amplification test (NAAT)performed on the
[employer] platform.
Diagnostic Testing:
Physical Exam
-
HEENT: Normocephalic, Anicteric and Other (Pupils reactive)
Cardiovascular: S1/S2, Irregular Rhythm, Murmur (n), Rub (n), Peripheral Edema (tr) and Other (General Ecchymoses, chronic venous stasis changes lower extremity)
Respiratory: Wheeze (n), Rales (n), Rhonchi (n) and Non-Labored Respirations
GI: Soft and Non Distended (Obese)
Neurology: Other (Sedated)
Skin: Good Color (Scattered ecchymoses) and Other (Oozing from IV sites, right upper extremity midline, left flank ecchymoses)
General: Comfortable
Assessment
-
68-year-old male with complex medical history including valvular disease status post aortic valve replacement 2017, coronary disease with history of recent elevated troponin at [facility], fall 10/10 hospitalized at [facility] for 2 weeks
transferred to [facility], brought to [facility] within 24 hours with mental status changes. Patient found to be in acute renal failure with history of chronic kidney disease, hypotension, anemic, hyperglycemic,
acidemic, shock liver. Chest x-ray suggested bilateral pneumonia with right perihilar process. Imaging suggested small retroperitoneal hematoma with small hematoma left lower quadrant/groin. Patient developed asystole requiring ROSC, epi x 2,
intubation 10/25 in the ICU
VDRF, intubated 10/25
Asystole, CPR, epi x 2, ROSC
NSTEMI
Elevated troponin, 55
Recent elevated troponin at [facility], details unclear
Suspected sepsis, septic shock
Bilateral pneumonia per imaging
Shock liver, severe transaminitis
Acute renal insufficiency, history of CKD
Baseline 1.3
Leukocytosis
Anemia
Coagulopathy
Recent mechanical fall trauma to the right chest wall
10/10/2024, hospitalized at [facility]
Small retroperitoneal bleed per abdominal imaging
Atrial flutter/atrial fibrillation, new diagnosis in the last few weeks
Acute endplate fracture of T9 per imaging
Conditions present prior to admission
History of DVT/PE April 2024
In the setting of cellulitis per
Type 2 diabetes
Hypertension/hyperlipidemia
History of coronary disease
Thrombocytopenia, questionable history of ITP per records
Recently diagnosed with rheumatoid arthritis at [facility]
History of COPD on chronic steroids per
Follows pulmonary at [facility]
Obstructive sleep apnea
On BiPAP at [facility] and retirement
Hypothyroidism
Chronic pain syndrome, chronic narcotic therapy
Plan/recommendations
At this time, patient remains critically ill. Complex medical history
History primarily obtained per
Patient with respiratory/cardiac arrest 10/25, presents with mental status changes from retirement, initial ABG pCO2 54 (not back) but hypoxia noted
Likely multifactorial with questionable component of pneumonia, heart failure, renal failure, shock liver
Moving forward
Continue volume-cycled ventilation
AC 12/500/5/100%
Ppk 24
Wean FiO2 as able
Maintain sedation
Recent ABG 7.35/48/167 on 100%
No plans for weaning at this time
Continue broad-spectrum antibiotics. Vancomycin, doxycycline, cefepime
Imaging concerning for bilateral pneumonia, right perihilar process
Follow cultures
Follow leukocytosis
Hypotension likely multifactorial (question cardiogenic, sepsis, adrenal insufficiency, renal failure, shock liver)
Continue stress dose steroids. Patient on chronic prednisone for COPD
Presently on norepinephrine
Wean as able
Echocardiogram pending
Patient with newly diagnosed atrial fibrillation recently, on Xarelto as outpatient
Cardiology following
Hyperglycemia noted
Remains on insulin drip
Coagulopathy noted, INR 2.41
Platelets 133. Questionable history of thrombocytopenia
Worrisome for DIC, check fibrinogen level
Will transfuse 1 unit and reassess
Abdominal imaging suggests small acute retroperitoneal hematoma and a left obturator muscle hematoma 6.4 cm. Patient did fall around 10/10
Follow hemoglobin for now
Ecchymosis on flank noted
Shock liver noted, likely due to septic shock, possibly cardiogenic shock, and ST elevation ID
Follow
Avoid hepatotoxic medications
Ammonia level 12
DVT prophylaxis: Hold anticoagulation due to anemia, oozing. Patient was on Xarelto as outpatient. Mechanical prophylaxis as able but this may be difficult due to lower extremity wounds
GI prophylaxis: Maintained Protonix
Had extensive discussion with by phone. She was hesitating for intubation in the ER. She was present yesterday in the p.m. prior to code, was feeling strong about making DNR
She feels her has been through a lot over the past 10 months
She is requesting DNR status, no CPR
She also had questions regarding possible comfort, withdrawal of care. I encouraged her to discuss with family, son. This will be an ongoing discussion
For now continue with supportive care
Reviewed with critical care nursing, respiratory care, cardiology, primary service
TCCT 60 min
--- NOTE | 2024-10-26 06:29 | W.PN.HOSP.TC ---
Addendum entered and electronically signed by Nabila Martinez MD 10/26/24 15:44:
I saw and evaluated the patient independently. I reviewed the resident�s note and agree with findings and plan as documented by Dr. Rose.
GENERAL: well developed, well nourished, male intubated and sedated
HEENT: NC/AT--intubated--NGT
HEART: irreg irreg
LUNGS : clear to auscultation bilaterally
ABDOM: soft, nontender, nondistended, + bowel sounds
EXT: no cyanosis, clubbing-- 2+ LE edema
NEUROLOGIC: intubated and sedated
: sinclair cath with hematuria
SKIN: diffuse ecchymosis throughout arms/lags large one on left abdomen/flank--bleeding from IV sites, A line, midline
shock physiology with multiorgan system failure, metabolic acidosis--etiologies include septic, hemorrhagic, cardiogenic (s/p CPR, asystole code--but EF 60% post code)--acute DIC--apprec nuclear physics teacher, cards, ID, nephro, heme--cont levophed,
doxy/zosyn -- cefepime and vanco stopped--transaminases > 7500, xarelto on hold--FFP given, pRBC given
acute on chronic hypoxemic resp failure with encephalopathy-- initially thought pt might be retaining CO2 and placed on BiPAP--no real improvement in mental status--head CT neg--apprec pulm---now intubated--uses 4L through BiPAP at home (settings
are 07/07)--NPO--consider dietary for nutrition
sepsis--likely due to pna, thought aspiration--apprec ID--abx changed per ID-- urine strep and legionella both negative-cultures neg to date--follow CXR and WBC count----cont stress dose steroids-- CT scans chest/abdomen/pelvis with severe RLL pna,
mild LLL pna, acute hematoma in left obturator internus muscle with retroperitoneal hematoma among other findings
NSTEMI/new aflutter/CHF unknown type/mitral stenosis/Aortic stenosis with bovine valve replacement--troponin 55 with pro BNP 25,000 on admission, prior to code--trend troponin and EKG-- ECHO with EF 60%--holding diuresis and follow creat-apprec
cards--hold oral bumex--hold IV lasix--change toprol XL to IV metoprolol with holding parameters but pt on Levophed
NATHANIEL on CKD stage unknown (baseline creat 1.3)--sinclair cath--hold IVF and BP adequate and needs diuresis--renal dose meds--apprec renal--creat rising from 2.0 to 2.3 to 2.7
leukocytosis--likely due to sepsis/pna, WBC count climbing, up to 30K--follow for now--apprec heme input
anemia--likely of chronic disease--ecchymosis, DIC, hematomas on CT scan--hold xarelto--ferritin > 10,000-- iron 162, TIBC 238, %sat 68%, folate >20, B12 >1000--apprec heme
hx of ITP?--platelets 'run low' per and needs steroids to increase them--apprec heme input
new diagnosis of RA--pt slow to get moving in the morning but by afternoon moving much better--not on DMARD therapy as yet--cont stress dose steroids
JOSE --likely chronic hypercapnia with metabolic compensation--HCO3=35--blood gases being followed--now intubated
type 2 DM--sugar 308--hold prandin--cont NPO-- HGB A1C 7.2--now on glycemic protocol
transaminitis--now due to shock liver-- CT scans as above--pt does not drink ETOH
positive cologard test--outpt work up if survives
gout--hold allopurinol
hypothyroid-- TSH 1.05--hold synthroid for now
prednisone dependent COPD/asthma--cont nebs as able--hold prednisone and do stress dose steroids
HLD--hold Lipitor for now
chronic pain with narcotic dependency?--? due to RA--hold percocet/tramadol--for now--limit narcotics--on stress dose steroids
HX of DVT/PE--hold xarelto for now--with ecchymosis, hold on IV heparin
skin graft to right leg from? cellulitis--wound care consult in AM
hyponatremia--likely due to volume overload--follow with diuresis
Mechanical Fall w/ reported trauma to R chest wall- Unable to obtain proper history from patient due to encephalopathy-- explained pt had complaints of suprapubic pain and dysuria--Patient tender to palpation- large ecchymotic lesions on the R/L
flanks--CT chest/Abd/pelvis noted as above
DVT proph--SCD
code status--DNR/DNI--after pt coded, now changed code status and considering comfort measures and WD of care.....
need records from [facility]--hospitalized there after fall--10/10 through 10/24--sent from [facility]
Total Critical Care Time 36 minutes. I was immediately available to the patient and staff. I personally examined, reviewed labs, diagnostic images/reports, interpretations, treatment plans, discussed patient care with other providers and family
or caregivers (if patient is unable to make decisions), entered orders as appropriate and documented the medical record.
Original Note:
Today's Communication/Plan
-
C/w IV Abx.FFP for DIC. Holding Lasix. Holding anticoagulation. Ventilation and Sedation wean per nuclear physics teacher. C/w stress dose steroids for now. IV lopressor for rate control.
Poor prognosis, will discuss with family decisions for comfort measures.
Appreciate integration of care teams for this patient.
Assessment / Plan
Assessment / Plan
68 year old male with a complex past medical history who is not known to
#Probable DIC
- Ecchymotic with oozing ports.
- Fibrinogen ordered, Stat H&H, along with repeat coag tests given high PT & APTT.
- 2U FFP ordered.
#Cardiac Arrest
- Asystole at 22:00 on 10/25/24. ROSC after 2 rounds of CPR. Currently intubated and sedated. Requiring pressors. Discussion had with and patient was made DNR. Further discussions regarding comfort care in the setting of grim prognosis.
- CT chest demonstrating chronic midline sternotomy dehiscence
#Acute on Chronic Hypoxic Respiratory Failure
- On BiPAP at home (4L, 14/10), requiring 10L, 16/8 right now. S/p x1 duoneb in ED
- VBG on admission showed PCO2 72 w/ PH of 7.27; repeat ABG after several hours on BiPAP showing 45 w/ pH of 7.41.
- Minimally responsive on current BiPAP, however saturations are 90s
- Will admit to ICU, nuclear physics teacher consulted
- Repeat ABG showing pH 7.35.
#Liver Failure, likely shock liver w/ possible multifactorial component - Tbili/AST/ALT 1.6/431/330. Unclear history. AST/ALT >7500 this am. Hemorrhagic in the setting fo DIC vs. cardiogenic in the setting of cardiac arrest vs. septic
#Altered Mental Status, possibly secondary to Hypercapnia from AHRF
- Head CT showing no acute intracranial abnormalities.
- mentation somewhat improved on BiPAP.
- Ammonia levels wnl
- Now sedated and intubated.
#Possible NSTEMI
#H/o Coronary Artery Stenting
- Troponins elevated to 55-46.8-40.6-39.4
- ECG showing rate controlled A flutter. Repeat ECG showing the same.
- Cardiology following. Rate control is priority in the setting of Severe MS to preserve EF.
#Acute Exacerbation of CHF (HFpEF)
#Severe Mitral Valve Stenosis
- no prior echo, on 3mg Bumex as outpatient, pitting edema on exam, ProBNP 20544, will obtain Echo showing EF 60-65% w/ severe mitral stenosis & AVR.
- holding lasix
- Cardiology and nephro following
#Sepsis, likely secondary to Pneumonia
- patient w/ leukocytosis, lactic acidosis, tachypnea on presentation with possible source of infection (PNA)
- BCx and Sputum cultures pending. UA pending.
- Given one dose of IV Vancomycin/Cefepime/Flagyl. Now on IV Doxy (for NPO), Vancomycin, and Cefepime (dose renally for CrCl)
- COVID/Flu (-), urine strep/legionella/MRSA (-)
- Holding fluids in the setting of likely CHF exacerbation
- ID Following
#Pneumonia, likely present on admission - H/o hospitalization for PNA at [facility] (will obtain records). CXR showing Mid LL and RLL consolidation. On Abx as above. Follow cultures as above.
- CT chest showing (1) severe RLL Pneumonia w/ possible aspiration and endobronchial occlusion of the RRL, (2) mild LLL pna, (3) sm L pleural effusion
#Paroxysmal Afib
- ECG shows rate control, will repeat in the AM.
- Holding home meds as patient is NPO.
- C/w IV Lopressor 7.5mg Q4
- Cardiology following
#Acute Renal Failure
#NATHANIEL on CKD, likely multifactorial (post/pre renal)
- Garment Liner reportedly 1.3 at [facility], in ED 2.0. BUN 97. Now 2.7, BUN 109, urine output <5cc/hr.
- UA showing RBCs & minimal bacteria.
- nephro following; OK for diuresis as above.
- Will place Sinclair
- Check CMP in the AM
#Abdominal/Suprapubic Pain
#Mechanical Fall w/ reported trauma to R chest wall
- Unable to obtain proper history from patient due to AMS. explained pt had complaints of suprapubic pain and dysuria. Patient tender to palpation in the RUQ.
- large ecchymotic lesions on the R/L flanks
- CT abd/pelvis showing (1) acute left obturator hematoma, (2) sm acute retroperitoneal hematoma of L iliopsoas
#Hyperphosphatemia
#Hypermagnesemia
- elevated, will observe follow
#ITP, chronic - per patient has chronic history of thrombocytopenia for which he sees a drop forge operator. Heme/Onc Following.
#Possible Colonic Neoplasm? - reports a positive cologuard test. Had follow up scheduled for 10/10/24, however never went due to prior hospitalization at [facility].
#NIDDM - Glucose on admission 308. Holding oral antiglycemic agents at this time. patient not one home insulin and NPO. Will start on MDISS.
#Anemia - Hgb 8.1 on admission; no prior lab values. Pending records from [facility]. Will transfuse if Hgb <7. patient's consented. s/p 1U pRBC.
#COPD - On chronic prednisone as outpatient. Given Decadron in ED. Will continue with stress dose steroids Hydrocortisone 100mg q8. Still on BiPAP. Will hold Duonebs/Albuterol for now.
#Essential Hypertension - holding home medications due to NPO. On Lopressor IV. Cardiology following.
#Sleep Apnea - On BiPAP.
#Rheumatoid Arthritis - not on DMARDs
#Gout - holding allopurinol
#Hypothyroidism - holding levothyroxine
#H/o Nephrolithiasis
#H/o PE
Diet - NPO
DVT PPx - Rectal Aspirin for tonight, will re-evaluate in AM
Code Status - Full Code
Anticipated Discharge: > 48 hours
Subjective/Interval History
-
Has episode of bleeding from posterior L leg skin tear. He is making poor urine 5cc/hr, requiring pressors/fentanyl ggt & insulin ggt. Though, he will respond to stimuli occasionally with head movement.
Objective Data
-
Labs:
Laboratory Results
10/25/24 10/25/24 10/25/24
19:41 22:14 22:17
WBC 29.5 H
Hgb 7.6 L
Hct 23.3 L
Plt Count 141 D
PT
INR
APTT
HCO3 28.5 H
Sodium 131 L
Potassium 6.7 H* D
Chloride 94 L
Carbon Dioxide 23
BUN 101 H*
Creatinine 2.3 H
Glucose 288 H
Calcium 8.6
Total Bilirubin
AST
ALT
Alkaline Phosphatase
10/26/24 10/26/24 10/26/24
00:45 03:43 03:44
WBC 30.2 H
Hgb 7.1 L
Hct 21.9 L
Plt Count 133
PT 26.3 H
INR 2.41
APTT 40.4 H
HCO3 17.8 L
Sodium 133 L
Potassium 5.1
Chloride 97 L
Carbon Dioxide 23
BUN 109 H*
Creatinine 2.7 H
Glucose 268 H
Calcium 8.8
Total Bilirubin 2.9 H D
AST > 7500 H*
ALT > 7500 H*
Alkaline Phosphatase 117
10/26/24
05:41
WBC
Hgb
Hct
Plt Count
PT
INR
APTT
HCO3 26.5
Sodium
Potassium
Chloride
Carbon Dioxide
BUN
Creatinine
Glucose
Calcium
Total Bilirubin
AST
ALT
Alkaline Phosphatase
Vital Signs:
Vital Signs
Temp Pulse Resp BP Pulse Ox
99.4 F 81 17 113/57 100
10/26/24 05:25 10/26/24 06:00 10/26/24 06:00 10/26/24 04:00 10/26/24 06:00
I&O
10/24/24 10/25/24 10/26/24
06:59 06:59 06:59
Intake Total 523.0 / 523.0
Output Total 129 / 129
Balance 394.0 / 394.0
Review of Systems
-
Unable to obtain full review of systems at this time due to: Patient Intubation
Physical Exam
-
General: Appears in Distress and Appears Chronically Ill
HEENT: Normocephalic, Atraumatic, Nose Appears Normal and Ears Appear Normal; Negative Anicteric or PERRLA
Respiratory: Wheezes and Rhonchi
Cardiac: Regular Rhythm, S1/S2 and Murmur
Breast: N/A
GI: Soft and Distended; Negative Normal Bowel Sounds
Genito-urinary: Sinclair and Other (Minimal michael colored urine)
Musculoskeletal: Edema, Right Lower Extrem and Edema, Left Lower Extrem
Skin: IV Access / Catheter Site (A-line) and Other (Scattered ecchymosis of the BL UE and BL LE. He has a bleeding skin tear on his L popliteal fossa & newly changed dressing on the lower lateral R grover from prior skin graft. )
Neuro: Sedated
[2024-10-26 06:35] LABS: Ferritin > 10000.0 ng/ml (17.9-464.0)
--- NOTE | 2024-10-26 06:36 | PTCARENOTE ---
Assessment overall unchanged. Pt continues on insulin drip and Levophed, Fentanyl drip started as well. Arterial line placed by ICU PROJECT MANAGER PROCESS DEVELOPMENT. Midline dressing noted to be saturated with blood at around 0330, discussed with VAT nurse who said that as long
as the dressing is still intact she would leave it for now and have dayshift reassess due to pt's risk for bleeding (multiple ecchymotic areas and bleeding skin tears)--she did not want to accidently remove a clot and start the bleeding process
again. At around 0500 dressing noted to be even more saturated, blood on the sheets as well. VAT team paged, awaiting response. All linens changed. 1 unit PRBC ordered this AM.
[2024-10-26 06:41] LABS: Glucose - Point of Care 258 mg/dl (70-99)
[2024-10-26] MEDS: LEVOPHED 250 IV ×3 (06:41→21:00)
[2024-10-26 06:55] LABS: % Basophils 0.2 % (0-2); % Eosinophils 0.2 % (0-6); % Immature Granulocytes 5.2 % (0-0.5); % Lymphocytes 0.7 % (20.5-51.1); % Monocytes 1.8 % (1.7-9.3); % Neutrophils 91.9 % (42.2-75.2); Absolute Basophils 0.1 10^3/uL (0-0.2); Absolute Eosinophils 0.1 10^3/uL (0-0.7); Absolute Immature Granulocytes 1.6 10^3/uL (0-0.05); Absolute Lymphocytes 0.2 10^3/uL (1.2-3.4); Absolute Monocytes 0.5 10^3/uL (0.1-0.6); Absolute Neutrophils 27.7 10^3/uL (1.4-6.5); Nucleated Red Blood Cells % 1.7 % (-)
[2024-10-26 07:13] LABS: GGTP 47 U/L (15-73)
[2024-10-26] MEDS: DUONEB 3 ML INH ×4 (07:23→20:02)
[2024-10-26 07:46] LABS: Glucose - Point of Care 201 mg/dl (70-99)
[2024-10-26 07:49] LABS: Fibrinogen 348 MG/DL (199-459)
[2024-10-26] MEDS: VIBRAMYCIN 260 MG IV ×2 (07:52→20:14)
[2024-10-26] MEDS: PROTONIX IV 40 MG IV (07:53)
[2024-10-26] MEDS: NSS (PRESERVATIVE FREE) 10 ML IV (07:53)
--- NOTE | 2024-10-26 08:34 | PTCARENOTE ---
report received, assessments per work list. patient hypotensive, levophed titration oper work list. unit PRBC initiated without signs reaction. bleeding from multiple sites, moderate amount oral bloody secretions suctioned and ETT suctions for same.
coarse breath sounds throughout. responsive to tactile stimulation, not following commands. restraints maintained for patient safety. ogt removed. streeter placed without issue right nare. placement confirmed with air auscultation, xray pending. sinclair
draining scant tea colored urine. glycemic protocol continues. drops pressure with stimulation. manager regional, resident and machine heel builder at bedside. spouse updated by machine heel builder on phone, patient made DNR status
[2024-10-26 08:38] LABS: Glucose - Point of Care 164 mg/dl (70-99)
[2024-10-26 08:41] LABS: Glycohemoglobin (HgbA1c) 7.2 % (4.0-5.6)
[2024-10-26 09:36] LABS: Glucose - Point of Care 126 mg/dl (70-99)
--- NOTE | 2024-10-26 09:40 | CON.CAR ---
Consultation
Consultation Request
Date/Time Consultation Requested: 10/25/2024 7 PM
Date/Time Consultation Performed: 10/26/2024 6:45 AM
Requesting Provider: Dr. Rose
Performing Provider: Dr Anel Kraus
Reason for Consultation: Non-Q wave myocardial infarction
Medical History
-
Chief Complaint: Non-Q wave myocardial infarction/respiratory arrest
History of Present Illness:
History is gathered from multiple sources and predominately from medical records and discussion with resident. Patient is intubated and sedated. He was transported to the emergency department from [facility]. He recently went to
[facility] and was admitted for fall 10/10/2024. He then was struggling with shortness of breath at alf and was transported to [place] emergency department. Around the time of fall he also had wound to the leg and skin graft.
Multiple injuries. Pulmonary embolism. He has COPD and is chronically on BiPAP. There is a question of whether he refused at night before admission at nursing facility.
He has known history of valvular disease with supposedly significant mitral stenosis, aortic stenosis status post valve replacement in the past (? [facility]) and possibly CABG around 2017. In addition he possibly has coronary stents. He also
has history of atrial fibrillation and is on Xarelto (multi use suspected atrial fibrillation/PE)
In addition he has known chronic kidney disease and history of thrombocytopenia.
On presentation he was hypoxic and hypercapnic. Initially BiPAP was used. He then was transported to intensive care. Patient developed respiratory arrest and asystole at around 10:00 p.m. 10/25/2024 requiring CPR, 2 rounds of epinephrine with ROSC,
Patient intubated at that time. Patient is currently on Levophed for blood pressure. Patient has multisystem organ failure which involves kidneys and also significantly involving liver.
EKG this a.m. with sinus rhythm and bifascicular block with ST elevation in aVR only and T wave abnormalities anterolaterally. Initial EKG in the ER 10/25/2024 15:04 with atrial flutter and bifascicular block nonspecific T wave abnormality. EKG in
the ER 10/25/2024 1936 with poor EKG baseline likely atrial flutter and bifascicular block with nonspecific T wave abnormalities possible mild ST elevation in lead aVR Initial troponin was 55.2 and has been downtrending since that time troponin this
morning 39.4.
Patient with multisystem organ failure. Patient with bleeding from superficial wounds. Patient with pneumonia suggested by CT scan. Patient with acute hematoma left obturator internus and small acute retroperitoneal hematoma left iliopsoas muscle.
Fusiform infrarenal abdominal aortic aneurysm 3.3 cm.
Past Medical History
Past Medical History: CAD (Prior cardiac stents details unknown. Possible CABG. History of bioprosthetic AVR. History of mitral stenosis.), COPD (History of being on BiPAP.), GERD, Hypercholesterolemia, Hypothyroidism, NIDDM and Other (Pulmonary
embolism, chronic kidney disease, falls, wounds and skin graft)
Social History
Tobacco: Smoker
Living: [facility]
Family History
Family History: Unable to Obtain
Allergies / Home Medications
Allergy/AdvReac Type Severity Reaction Status Date / Time
hydromorphone [From Dilaudid] Allergy Unknown Verified 10/25/24 15:47
�Medication �Instructions �Recorded �Confirmed �Type
acetaminophen 325 mg tablet 650 mg PO Q6HPRN PRN mild pain 10/25/24 10/25/24 History
(Tylenol)
albuterol sulfate 90 mcg/actuation 2 puff inhalation R Q6HPRN PRN sob 10/25/24 10/25/24 History
aerosol inhaler
allopurinol 300 mg tablet 300 mg PO DAILY 10/25/24 10/25/24 History
aspirin 325 mg tablet 325 mg PO DAILY 10/25/24 10/25/24 History
atorvastatin 40 mg tablet (Lipitor) 40 mg PO HS 10/25/24 10/25/24 History
bisacodyl 10 mg rectal suppository 10 mg SD DAILYPRN PRN if no bm 10/25/24 10/25/24 History
(Dulcolax (bisacodyl)) aftr mom
bumetanide 1 mg tablet 3 mg PO DAILY 10/25/24 10/25/24 History
cholecalciferol (vitamin D3) 10 10 mcg PO DAILY 10/25/24 10/25/24 History
mcg (400 unit) tablet (Vitamin D3)
coQ10 (ubiquinol) 100 mg capsule 30 mg PO DAILY 10/25/24 10/25/24 History
diltiazem HCl 120 mg 120 mg PO DAILY 10/25/24 10/25/24 History
capsule,extended release 24 hr
docusate sodium 100 mg capsule 100 mg PO DAILY 10/25/24 10/25/24 History
(Colace)
ferrous sulfate 325 mg (65 mg 325 mg PO DAILY 10/25/24 10/25/24 History
iron) tablet
gabapentin 300 mg capsule 300 mg PO TID 10/25/24 10/25/24 History
levothyroxine 125 mcg tablet 125 mcg PO DAILY 10/25/24 10/25/24 History
(Synthroid)
magnesium hydroxide 400 mg/5 mL 2,400 mg PO DAILYPRN PRN i fno bm 10/25/24 10/25/24 History
oral suspension (Milk of Magnesia) by 3rd day
magnesium oxide 400 mg PO DAILY 10/25/24 10/25/24 History
metoprolol succinate 100 mg 100 mg PO BID 10/25/24 10/25/24 History
tablet,extended release 24 hr
(Toprol XL)
ondansetron HCl 4 mg tablet 4 mg PO Q8HPRN PRN nausea 10/25/24 10/25/24 History
oxycodone-acetaminophen 10 mg-325 1 tab PO Q6HPRN PRN severe pains 10/25/24 10/25/24 History
mg tablet (Percocet)
pantoprazole 40 mg tablet,delayed 40 mg PO DAILY 10/25/24 10/25/24 History
release (Protonix)
polyethylene glycol 3350 17 gram 17 g PO DAILYPRN PRN constipation 10/25/24 10/25/24 History
oral powder packet (Miralax)
prednisone 10 mg tablet 40 mg PO DAILY 10/25/24 10/25/24 History
prednisone 10 mg tablets in a dose 10 mg PO DIRECTED 10/25/24 10/25/24 History
pack
repaglinide 1 mg tablet 1 mg PO DAILYPRN PRN if bs above 10/25/24 10/25/24 History
250
rivaroxaban 15 mg tablet (Xarelto) 15 mg PO DAILY 10/25/24 10/25/24 History
sodium phosphates 19 gram-7 118 ml SD DAILYPRN PRN if no bm 10/25/24 10/25/24 History
gram/118 mL enema (Fleet Enema) aftr dulcolax
sucralfate 1 gram tablet (Carafate) 1 g PO BID 10/25/24 10/25/24 History
therapeutic multivitamin 1 tab PO DAILY 10/25/24 10/25/24 History
tramadol 50 mg tablet 50 mg PO Q8HPRN PRN moderate pains 10/25/24 10/25/24 History
zolpidem 12.5 mg tablet,extended 12.5 mg PO HSPRN PRN sleep 10/25/24 10/25/24 History
release,multiphase (Ambien CR)
General: Critically ill man intubated
Heart: Distant heart sounds, regular, 2/6 basal systolic murmur
Lungs: Intubated with coarse anterior breath sounds
Skin: Multiple skin tears and oozing, legs wrapped
Extremities: No clubbing, cyanosis +1 edema bilaterally.
Neuro: Sedated
Review of Systems
-
Unable to obtain full review of systems at this time due to: Patient Intubation
All other systems: Negative unless noted
Physical Exam
Vital Signs
Temp Pulse Resp BP Pulse Ox
99.5 F 90 12 122/40 93
10/26/24 07:45 10/26/24 07:45 10/26/24 07:45 10/26/24 07:45 10/26/24 07:45
Lab Results
10/26/24 03:43
10/26/24 03:44
Troponin I 39.400 ng/ml H* 10/26/24 03:44
Alq-M-Snynunriysi Pept 32615 pg/ml 10/25/24 14:23
Impression / Plan
-
Impression:
-Respiratory arrest and vent dependent respiratory failure with hypercapnia in the setting of known sleep apnea and COPD
-Respiratory arrest requiring CPR 10/25/2024
-Shock with renal dysfunction and severe hepatic dysfunction multisystem organ failure with lactic acidosis
-Heart failure with unknown left ventricular ejection fraction and proBNP 25,200
-Pneumonia
-Non-Q wave myocardial infarction with peak troponin 55 which was first troponin
History of possible CABG/coronary stents (2017). Obtain records.
-History of bioprosthetic AVR
-History of possibly severe mitral stenosis
-Atrial flutter/history of atrial fibrillation on oral anticoagulation
-Recent pulmonary embolism on oral anticoagulation
-Hyperlipidemia
-Diabetes
-Multiple falls with skin wounds and on CT scan retroperitoneal and other hematoma
-History of thrombocytopenia
-Now with easy bleeding and bruising
-Tobacco abuse
-COPD intermittently steroid-dependent now receiving hydrocortisone
-Sleep apnea
-Chronic kidney disease
-Hypothyroidism
-Aortic aneurysm 3.3 cm
-Anemia
-DNR CODE STATUS
Plan:
Critically ill man with multiple medical issues unknown to our system.
Multisystem organ failure, vent dependent respiratory failure and respiratory arrest 10/25/2024. From a cardiac point of view presented with troponin of 55 as initial troponin which has been downtrending. There is mild ST elevation in lead aVR which
is isolated. Likely represents non-Q wave myocardial infarction. Given downtrending troponins, bleeding related issues and multisystem organ failure continue conservative/supportive management for now.
Multisystem organ failure with hypotension and lactic acidosis
Levophed for blood pressure support wean as able
Treat all contributing underlying causes as outlined
Respiratory failure
Defer to primary service and horse stud worker antibiotics for pneumonia
Support of COPD and hypercapnic respiratory failure
Cultures pending
Non-Q wave myocardial infarction
Troponins are down trending
Cannot be given heparin given issues currently with bleeding/retroperitoneal hematoma and hematoma left iliopsoas muscle
Aspirin if able
Hold statins at this time given significant liver dysfunction
History of possible CABG/coronary stents/bioprosthetic AVR and possibly severe mitral stenosis
Will check echo today
Unable to take blood thinning medications or antiplatelet medications at this time. Unable to take statins.
Obtain old records
Continue supportive care.
Atrial flutter with history of atrial fibrillation
Paroxysmal and currently in sinus rhythm
Rate control atrial arrhythmias with beta-allan as able, despite not receiving given parameters heart rates remain under 100
Currently not an anticoagulation candidate given bleeding
Anemia
Secondary to bleeding defer to primary service
Pneumonia
Defer to primary service
Renal failure
Worsening creatinine and decreased urine output. Nephrology consulted.
Liver failure
LFTs greater than 7500
Diabetes
Per primary service
DNR CODE STATUS
I spent 60 minutes critical care time reviewing records, discussing with resident, nursing and horse stud worker. Also discussing through secure text with [employer] who I called in for echo.
Data Reviewed
-
EKG: Tracing Personally Visualized and interpreted
Radiology: Image Personally Visualized and interpreted and Report Reviewed by me
CT Scan: Report Reviewed by me
Labs: Labs Reviewed by me
Old Records: Requested and Reviewed
Critical Care Time (in minutes): 60
[2024-10-26] MEDS: SOLU-CORTEF 50 MG IV (09:52)
--- NOTE | 2024-10-26 10:01 | CON.ID ---
Consultation
-
Date/Time Consultation Requested: 10/25/24 21:54
Date/Time Consultation Performed: 10/25/24 10:28
Requesting Provider: Dr Rose
Performing Provider: Dr Shea
Reason for Consultation: Altered Mental Status
Chief Complaint / Past History
Chief Complaint
Altered Mental Status
History of Present Illness
Mr Jade is a 68 year old male who presented here last night for AMS, this is patients first visit to . Notable history include CHF, prosthetic AV valve replacement, COPD on chronic steroids, renal failure. The patient initially presented to
[facility] on 10/10 after a mechanil fall onto his R side, he was found to have pneumonia - treated with unknown antibiotics and steroids. Course notable for afib started blood thinners, dysuria and sinclair catheter placement. He was discharged 10/24
for rehab, he was kept on bipap overnight. In the AM family found him minimally responsive and disoriented and he was brought to . Note recently positive cologuard pending follow up.
Since arrival here he has been afebrile, bp unstable requiring pressors, wbc initially 22 most recently 30 (on steroids), hgb 7.1, plt 133, L shift is noted, cr initially 2.0 unknown baseline today 2.7, na 133, K peaked at 6.7 now 5.1, a1c 7.2 (not
previously on dm2 medication), lactic acid peaked at 9.8 now 2.1, t bili currently 2.9 uptrending, AST and ALT >7500, alk phos 117, troponins peaked at 55 on arrival currently 38, UA few bacteria, no pyuria, >15 hyaline casts, covid ag negative,
ammonia level 12 CXR: bilateral lower airspae consolidations. CT c/a/p: severe pneumonia - multifocal, secretions in the dital trachea, chronic midline sternotomy dehiscence, Acute hematoma in the left obturator internus muscle and small acute
retroperitoneal hematoma in the left iliopsoas muscle. resp culture in progress gram stain not yet resulted, strep/legionella urine ags negative, mrsa nasal screen negative, blood cultures x2 in progress, influenza/covid ags negative, Overnight
pressor dose requirements increased and now on levophed at 10 mcg/min, AM cortisol 90, currently on vancomcyin/cefepime/doxycycline. ID is consulted for assistance with management.
Note that family was considering whether to intubate patient in the ER, now patient DNR - no CPR, and hospice a consideration.
Past History
Additional Past Medical History:
CAD, CHF, COPD, HTN, Hypercholesterolemia, Hypothyroidism, NIDDM and Renal Failure
History of PE, Sleep Apnea, GERD, RBBB, Prosthetic AV valve
Additional Past Surgical History:
CABG
heart valve replacement
Allergy History:
hydromorphone [From Dilaudid] Allergy (Verified 10/25/24 15:47)
Unknown
Medications Reviewed: Yes
Social History
Tobacco: Smoker (>50 ppy)
Alcohol: None
Drug: None
Family History
Family History: Not Pertinent
Review of Systems
Review of Systems
unable to obtain due to the condition of the patient
Vital Signs
Temp Pulse Resp BP Pulse Ox
99.3 F 78 12 132/46 96
10/26/24 09:47 10/26/24 09:47 10/26/24 09:47 10/26/24 09:47 10/26/24 09:47
Physical Exam
Physical Exam
Constitutional: Acutely Ill and Chronically Ill
Head: Other (dried blood on lips)
Cardiovascular: Regular Rate and S1/S2; Negative Murmur or Rub
Pulmonary: Symmetric, Wheezes and Non Labored; Negative Rales or Rhonchi
Gastrointestinal: Soft, Non Tender, Non Distended and Normal Bowel Sounds
Skin: Warm, Dry and Other (diffuse brusising); Negative Jaundice
Neurological: Negative Awake (sedated)
Lab / Diagnostic Study Results
10/26/24 03:43
10/26/24 03:44
Abs Immat Gran (auto) 1.6 10^3/uL (0-0.05) H 10/26/24 03:43
Absolute Neuts (auto) 27.7 10^3/uL (1.4-6.5) H 10/26/24 03:43
Absolute Lymphs (auto) 0.2 10^3/uL (1.2-3.4) L 10/26/24 03:43
Absolute Monos (auto) 0.5 10^3/uL (0.1-0.6) 10/26/24 03:43
Absolute Basos (auto) 0.1 10^3/uL (0-0.2) 10/26/24 03:43
Immature Gran % 5.2 % (0-0.5) H 10/26/24 03:43
Neutrophils % 91.9 % (42.2-75.2) H 10/26/24 03:43
Lymphocytes % 0.7 % (20.5-51.1) L 10/26/24 03:43
Monocytes % 1.8 % (1.7-9.3) 10/26/24 03:43
Eosinophils % 0.2 % (0-6) 10/26/24 03:43
Basophils % 0.2 % (0-2) 10/26/24 03:43
PT 26.3 Sec (11.4-14.6) H 10/26/24 03:44
INR 2.41 10/26/24 03:44
Lactic Acid 6.1 mmol/L (0.7-2.0) H* 10/26/24 03:43
Ur Squamous Epith Cells 3-5 /LPF (Few) 10/25/24 19:41
Microbiology Results
Micro:
10/25/24 22:15 Legionella Urinary Antigen - Final
Urine Negative for Legionella pneumophila Serogroup 1 antigen.
A negative result does not rule out the possiblity of
Legionella infection due to other serogroups or species of
Legionella. Clinical correlation is recommended.
Streptococcus pneumoniae Antigen (M - Final
Negative for Streptococcus pneumoniae antigen.
A negative result does not exclude infection with
Streptococcus pneumoniae. Clinical correlation is
recommended.
10/25/24 22:15 Nasal Screen MRSA (PCR) - Pending
Nose
10/26/24 04:24 Respiratory Culture - Pending
Endotracheal Gram Stain - Pending
10/25/24 14:23 Influenza Types A & B (KEN) - Final
Nasal Swab Negative for Influenza A & B, NAAT
Negative results must be combined with clinical observations
and patient history.
Nucleic Acid Amplification test (NAAT)performed on the
[employer] platform.
10/25/24 15:06 Blood Culture - Pending
Blood/Venous
10/25/24 14:23 Blood Culture - Pending
Blood/Venous
Assessment / Plan
Multisystem Organ Failure
Septic Shock
Hypoxemic Resp Failure
Pneumonia - most likely aspiration, with recent course of antibiotics
Acute L psoas hematoma vs abscess
Heart Valve replacement - AV valve
Non-Q wave myocardial infarction
NATHANIEL
- blood cultures x2 in progress - no growth to date
- sputum culture in progress- gram stain not resulted
- may consider further intervention on the psoas collection such as sampling with IR if bacteremic and stabilizing, too unstable at this time to undertake that
- MRSA screen negative - vancomycin stopped
- covid and influenza negative
- switched to zosyn, stopped cefepime
- continue doxycycline for now
- steroids per pulmonary
Patient is critically ill, prognosis appears grim, family are considering hospice.
[2024-10-26 10:08] LABS: Lactic Acid 2.1 mmol/L (0.7-2.0)
--- NOTE | 2024-10-26 10:20 | W.CON.NEPH ---
Consultation
-
Date/Time Consultation Requested: 10/25/24 2154
Date/Time Consultation Performed: 10/26/24 1000
Requesting Provider: Nablia Martinez MD
Performing Provider: Fay Kerr
Reason for Consultation: NATHANIEL
Medical History
-
Chief Complaint: AMS
History of Present Illness:
68 year old man With multiple medical problems includes valvular heart disease, mitral stenosis, status post AVR for , chronic respiratory failure from COPD/asthma on chronic steroids, history of left lower extending to cellulitis with chronic
corns requiring skin graft, see Judy stage III Baseline creatinine 1.3, coronary artery disease with stenting, CHF and Bumex, history of DVT and PE on anticoagulation with Xarelto, diabetes mellitus on prandin who is reportedly just discharged from
[facility] after 2 weeks of admission following a fall. he was discharged to [place] on 10/24, reportedly he was seen at his baseline at prior night, when family return to check the next day morning he was altered and brought to the ER.
He was noted to be in acute respiratory failure requiring BiPAP. Through the night he also had a cardiac arrest requiring CPR and epinephrine for asystole. Subsequently patient intubated. He also noted to have bleeding from multiple orifices.
His creatinine on admission was at 2, this morning increased up to 2.7 , BUN 109 and he is anuric with Sinclair catheter. Nephrology consult to further evaluate. Family made him DNR. history is obtained through the chart.
No reported fever or diarrhea. Is on 60% FiO2.
Past Medical History
Arrhythmia, CAD, CHF, COPD, HTN, Hypercholesterolemia, Hypothyroidism, NIDDM and ?CKD
History of PE, Sleep Apnea, GERD, RBBB, AVR, RA
Past Surgical History: Other (Aortic Valve Replacement, Coronary Artery Stenting 2017)
Social History
Tobacco: Smoker
Alcohol: None
Drug: None
Personal:
Living: Intermediate
Family History
Family History: Unable to Obtain
Allergies / Home Medications
Allergy/AdvReac Type Severity Reaction Status Date / Time
hydromorphone [From Dilaudid] Allergy Unknown Verified 10/25/24 15:47
�Medication �Instructions �Recorded �Confirmed �Type
acetaminophen 325 mg tablet 650 mg PO Q6HPRN PRN mild pain 10/25/24 10/25/24 History
(Tylenol)
albuterol sulfate 90 mcg/actuation 2 puff inhalation R Q6HPRN PRN sob 10/25/24 10/25/24 History
aerosol inhaler
allopurinol 300 mg tablet 300 mg PO DAILY 10/25/24 10/25/24 History
aspirin 325 mg tablet 325 mg PO DAILY 10/25/24 10/25/24 History
atorvastatin 40 mg tablet (Lipitor) 40 mg PO HS 10/25/24 10/25/24 History
bisacodyl 10 mg rectal suppository 10 mg IN DAILYPRN PRN if no bm 10/25/24 10/25/24 History
(Dulcolax (bisacodyl)) aftr mom
bumetanide 1 mg tablet 3 mg PO DAILY 10/25/24 10/25/24 History
cholecalciferol (vitamin D3) 10 10 mcg PO DAILY 10/25/24 10/25/24 History
mcg (400 unit) tablet (Vitamin D3)
coQ10 (ubiquinol) 100 mg capsule 30 mg PO DAILY 10/25/24 10/25/24 History
diltiazem HCl 120 mg 120 mg PO DAILY 10/25/24 10/25/24 History
capsule,extended release 24 hr
docusate sodium 100 mg capsule 100 mg PO DAILY 10/25/24 10/25/24 History
(Colace)
ferrous sulfate 325 mg (65 mg 325 mg PO DAILY 10/25/24 10/25/24 History
iron) tablet
gabapentin 300 mg capsule 300 mg PO TID 10/25/24 10/25/24 History
levothyroxine 125 mcg tablet 125 mcg PO DAILY 10/25/24 10/25/24 History
(Synthroid)
magnesium hydroxide 400 mg/5 mL 2,400 mg PO DAILYPRN PRN i fno bm 10/25/24 10/25/24 History
oral suspension (Milk of Magnesia) by 3rd day
magnesium oxide 400 mg PO DAILY 10/25/24 10/25/24 History
metoprolol succinate 100 mg 100 mg PO BID 10/25/24 10/25/24 History
tablet,extended release 24 hr
(Toprol XL)
ondansetron HCl 4 mg tablet 4 mg PO Q8HPRN PRN nausea 10/25/24 10/25/24 History
oxycodone-acetaminophen 10 mg-325 1 tab PO Q6HPRN PRN severe pains 10/25/24 10/25/24 History
mg tablet (Percocet)
pantoprazole 40 mg tablet,delayed 40 mg PO DAILY 10/25/24 10/25/24 History
release (Protonix)
polyethylene glycol 3350 17 gram 17 g PO DAILYPRN PRN constipation 10/25/24 10/25/24 History
oral powder packet (Miralax)
prednisone 10 mg tablet 40 mg PO DAILY 10/25/24 10/25/24 History
prednisone 10 mg tablets in a dose 10 mg PO DIRECTED 10/25/24 10/25/24 History
pack
repaglinide 1 mg tablet 1 mg PO DAILYPRN PRN if bs above 10/25/24 10/25/24 History
250
rivaroxaban 15 mg tablet (Xarelto) 15 mg PO DAILY 10/25/24 10/25/24 History
sodium phosphates 19 gram-7 118 ml IN DAILYPRN PRN if no bm 10/25/24 10/25/24 History
gram/118 mL enema (Fleet Enema) aftr dulcolax
sucralfate 1 gram tablet (Carafate) 1 g PO BID 10/25/24 10/25/24 History
therapeutic multivitamin 1 tab PO DAILY 10/25/24 10/25/24 History
tramadol 50 mg tablet 50 mg PO Q8HPRN PRN moderate pains 10/25/24 10/25/24 History
zolpidem 12.5 mg tablet,extended 12.5 mg PO HSPRN PRN sleep 10/25/24 10/25/24 History
release,multiphase (Ambien CR)
Review of Systems
-
Unable to obtain full review of systems at this time due to: Patient Intubation
Physical Exam
Vital Signs
Vital Signs
Temp Pulse Resp BP Pulse Ox
99.2 F 80 12 140/47 97
10/26/24 12:00 10/26/24 12:00 10/26/24 12:00 10/26/24 12:00 10/26/24 12:00
Lab Results
WBC 30.2 10^3/uL (4.8-10.8) H 10/26/24 03:43
RBC 2.20 10^6/uL (4.70-6.10) L 10/26/24 03:43
Hgb 8.3 g/dL (13.0-18.0) L 10/26/24 10:37
Hct 24.0 % (39.0-52.0) L 10/26/24 10:37
Plt Count 133 10^3/uL (130-400) 10/26/24 03:43
Sodium 133 mmol/L (135-145) L 10/26/24 03:44
Potassium 5.1 mmol/L (3.5-5.1) 10/26/24 03:44
Chloride 97 mmol/L (98-107) L 10/26/24 03:44
Carbon Dioxide 23 mmol/L (22-30) 10/26/24 03:44
BUN 109 mg/dl (9-20) H* 10/26/24 03:44
Creatinine 2.7 mg/dL (0.7-1.3) H 10/26/24 03:44
eGFR 24.74 10/26/24 03:44
Glucose 268 mg/dl (70-99) H 10/26/24 03:44
Calcium 8.8 mg/dl (8.4-10.2) 10/26/24 03:44
Phosphorus 6.4 mg/dl (2.5-4.5) H 10/26/24 03:44
Gmy-I-Ylfogyvappy Pept 21462 pg/ml 10/25/24 14:23
Albumin 2.8 g/dl (3.5-5.0) L 10/26/24 03:44
echo:
CONCLUSIONS
Normal left ventricular size and systolic function. No regional wall motion
abnormalities are seen. LV ejection fraction is 60-65% by visual assessment.
Moderate to severe left ventricular hypertrophy. Diastolic function
indeterminate.
Normal right ventricular size. Normal right ventricular systolic function.
Thickened calcified, restricted mitral valve leaflets. Moderate mitral stenosis
(At heart rate of 79 bpm.). Peak gradient 17 mmHg. Mean gradient is 9mmHg.
The valve area by pressure half time is 1.5cm sq. Trace mitral regurgitation.
Normally functioning bioprosthetic valve. Peak/mean gradients are 21/9mmHg.
Trivial aortic regurgitation.
Mild tricuspid regurgitation. Estimated pulmonary artery pressure of 80-85
mmHg. Assuming a right atrial pressure of [address]/abd with out ocntrast:
IMPRESSION:
CHEST:
1. SEVERE RIGHT LOWER LOBE PNEUMONIA (possibly aspiration pneumonia considering endobronchial occlusion of the right lower lobe).
2. Mild left lower lobe pneumonia.
3. Small left pleural effusion.
4. Layering secretions in the distal trachea.
5. Mild mosaic attenuation in the upper lobes suggesting obstructive small airways disease.
6. Mild cardiomegaly.
7. Previous aortic valve replacement.
8. Chronic midline sternotomy dehiscence.
9. Acute superior endplate fracture of T9.
ABDOMEN and PELVIS:
1. Acute hematoma in the left obturator internus muscle and small acute retroperitoneal hematoma in the left iliopsoas muscle.
2. Severe calcific atherosclerotic plaque in the abdominal aorta, iliac, and femoral arteries.
3. Fusiform infrarenal abdominal aortic aneurysm (3.3 cm AP dimension).
4. Severe calcific atherosclerotic plaque in the proximal superior mesenteric and right common iliac arteries causing greater than 70% diameter stenoses.
5. Moderate chronic bilateral renal disease.
6. Moderate diverticulosis in the sigmoid colon.
7. Moderate fecal material in the rectum.
8. Moderate size fat-containing umbilical hernia.
9. Sinclair catheter in urinary bladder.
10. Bilateral avascular necrosis of the femoral heads.
Physical Exam
General: Other ( intubated and sedated)
HEENT: Neck Supple and Other (ET tube noted)
Respiratory: Rhonchi and Other ( intubated)
Cardiac: S1/S2 and Regular Rate/Rhythm
Abdomen: Soft, Nontender and Other ( bruising noted on the left lateral side)
Musculoskeletal: Edema
Neuro: Sedated and Other
Psych: Other ( cannot assess intubated)
Data Reviewed
-
Radiology: Report Reviewed by me, Discussed with Physician, Discussed with Nurse and Discussed with Family
Labs: Labs Reviewed by me, Discussed with Physician, Discussed with Nurse and Discussed with Family
Assessment/Plan
-
IMP:
Asystole-card arrest -10/25
NATHANIEL on CKD stage unknown (baseline creat 1.3)
acute on chronic hypoxemic resp failure
TME-encephalopathy
sepsis--likely due to pna
NSTEMI
new aflutter
CHF unknown type
mitral stenosis
Aortic stenosis with bovine valve replacement
anemia--likely of chronic disease
hx of ITP?
new diagnosis of RA
JOSE
type 2 DM
transaminitis
positive cologard test
Small retroperitoneal bleed per abdominal imaging
gout
hypothyroid
prednisone dependent COPD/asthma
HLD
chronic pain with narcotic dependency?
HX of DVT/PE
skin graft to right leg
hyponatremia
h/o falls
Recent mechanical fall trauma to the right chest wall
10/10/2024, hospitalized at [facility]
Plan:
A/w AMS, acute on chr resp failure, card arrest
NATHANIEL likely prerenal and progressing to ATN , anuric with sinclair
vol status difficult to assess, high BNP
ok for prn lasix
pressors to maintain MAP >65
cont supportive care
he is with MODS with poor prognosis
not candidate for [employer]-d/w on phone and agrees with plan
dose meds renally, abx per ID
d/w primary and nursing
CC time spent 45min
--- NOTE | 2024-10-26 10:41 | PTCARENOTE ---
ngt pulled back to 50 based on xray reading. hospitalist, renal at bedside. stat labs repeated. to receive FFP prior to picc placement
[2024-10-26 10:45] LABS: Glucose - Point of Care 98 mg/dl (70-99)
[2024-10-26 10:46] LABS: Hemoglobin 8.3 g/dL (13.0-18.0)
[2024-10-26 10:58] LABS: INR 2.15; PT 24.1 Sec (11.4-14.6)
[2024-10-26 10:59] LABS: APTT 36.4 Sec (23.4-35.0)
--- NOTE | 2024-10-26 11:32 | PTCARENOTE ---
Addendum entered by Jayna Cedeno RN 10/26/24 12:52:
reassessed. family at bedside. tumbling instructor at bedside, goals of care discussions with tumbling instructor.
Original Note:
ngt remains coiled. removed and reinserted. placement verified by air auscultation, dai brown residual obtained. FFp infusing without signs reaction. ett suctioned for large amount thick dai sputum.
[2024-10-26 11:40] LABS: Glucose - Point of Care 96 mg/dl (70-99)
[2024-10-26 12:14] LABS: Vancomycin Random 18.8 ug/ml
[2024-10-26] MEDS: ZOSYN 50 IV ×2 (12:37→17:34)
[2024-10-26 12:39] LABS: Glucose - Point of Care 104 mg/dl (70-99)
--- NOTE | 2024-10-26 12:52 | CON.ONC ---
Impression
Impression
- Septic shock
- cardiac arrest w/ ROSC
- bilateral pneumonia
- acute respiratory failure
- shock liver
- retroperitoneal hematomas
- hx of ITP
- hx of VTE 04/2024 on low dose DOAC
- CAD on ASA
Plan
Plan
- pt presenting with septic shock with bilateral PNA. course complicated by cardiac arrest evening 10/26 now with ROSC, intubated on pressors.
- pt with long standing hx of ITP requiring intermittent interventions for drop in counts < 50K. He seems to still respond transiently to steroids however from last hematology note, Dr Lopez in August he was not on chronic steroids. suspect prd
40 on this admission possibly started for COPD symptoms on recent OSH admission?however with steroid duration unclear I feel stress dose steroids for potential adrenal insufficiency appropriate. Pt last received Nplate in November 2023 with good,
durable response. plts have been in 100-120K range since then and up to 190K on presentation.
- pt also with hx of PE in 04/2024 and Xarelto dose was decreased ton 10 mg daily in August due to bruising, bleeding at leg wound on 15 mg BID dose. He was diagnosed with new onset afib during recent OSH stay and it appears dose increased back to
15 mg. agree with holding all AC at this time as clinically appears coagulopathic possibly related to shock liver, acute DIC (elevated PT, PTT, normal fibrinogen).
- CBC daily. transfuse for hgb < 7.0 or < 8.0 if significant bleeding present, plts < 20K.
Patient History
History of Present Illness
Jose Miguel is a 68 year old man w/ hematologica hx of relapsed ITP follows with Dr Lopez at [facility], iron deficiency anemia, PE 04/2024 on reduced dose Xarelto who presented to the ER for altered mental status.
The patient was admitted to [facility] on 10/10 after sustaining a mechanical fall and landing on his R side. He was taken to the [facility] where a CXR was done which revealed pneumonia. He was kept and treated for pneumonia with
antibiotics and steroids for his history of COPD. While in [facility] he was found to have Afib which was a new diagnosis.Of note, he had a PE in April 2024. He did not tolerate full or intermediate dose DOAC and was taking Xarelto 10 mg daily however
appears was increased to 15 mg daily on recent hospital stay. The decision was made to discharge him on 10/24/24 to [facility] for rehab. The states that she gave him all his usual medications in the evening and he was kept on
BiPAP. The and son returned in the morning on the day of presentation to find the patient was disoriented and minimally responsive with altered mental status and so he was brought to . Labs on admission with WBC 22.4, hgb 8.1 g/dl (10.6 outpt
09/02), plts 190,000. AST, ALT > 29131, ferritin > 10,000, Cr 2.7 (baseline 1.6-2.0). Of note, pt recently had been undergoing work-up for positive cologaurd with new mild anemia on CBC in August. Due to other comorbidies he required clearance of
cardio, pulm before proceeding with colonoscopy.
regarding ITP hx, Pt was initially diagnosed in 2009 at which time he responded well to steroids alone. He then had relapse in 2016 and received Rituxan. Since then he has required short courses of Nplate for drops in counts to 40-50K range with
good responses. he last received 4 weekly doses of Nplate in November 2023 and since then serial CBCs with plts in 100-120K range.
Shortly after getting to the ICU the patient had cardiac arrest requiring CPR with ROSC. Pt now intubated, sedated. He is on levophed. RN at bedside noting oozing at lines, leg wound, ET tube. He has extensive ecchymotic lesions on forearms, flanks.
CT scans showed severe right mild left PNA, Acute hematoma in the left obturator internus muscle and small acute retroperitoneal hematoma in the left iliopsoas muscle.
Patient Medication
�Medication �Instructions �Recorded �Confirmed �Last Taken �Type
acetaminophen 325 mg tablet 650 mg PO Q6HPRN PRN mild pain 10/25/24 10/25/24 Unknown History
(Tylenol)
albuterol sulfate 90 mcg/actuation 2 puff inhalation R Q6HPRN PRN sob 10/25/24 10/25/24 Unknown History
aerosol inhaler
allopurinol 300 mg tablet 300 mg PO DAILY 10/25/24 10/25/24 Unknown History
aspirin 325 mg tablet 325 mg PO DAILY 10/25/24 10/25/24 Unknown History
atorvastatin 40 mg tablet (Lipitor) 40 mg PO HS 10/25/24 10/25/24 Unknown History
bisacodyl 10 mg rectal suppository 10 mg SC DAILYPRN PRN if no bm 10/25/24 10/25/24 Unknown History
(Dulcolax (bisacodyl)) aftr mom
bumetanide 1 mg tablet 3 mg PO DAILY 10/25/24 10/25/24 Unknown History
cholecalciferol (vitamin D3) 10 10 mcg PO DAILY 10/25/24 10/25/24 Unknown History
mcg (400 unit) tablet (Vitamin D3)
coQ10 (ubiquinol) 100 mg capsule 30 mg PO DAILY 10/25/24 10/25/24 Unknown History
diltiazem HCl 120 mg 120 mg PO DAILY 10/25/24 10/25/24 Unknown History
capsule,extended release 24 hr
docusate sodium 100 mg capsule 100 mg PO DAILY 10/25/24 10/25/24 Unknown History
(Colace)
ferrous sulfate 325 mg (65 mg 325 mg PO DAILY 10/25/24 10/25/24 Unknown History
iron) tablet
gabapentin 300 mg capsule 300 mg PO TID 10/25/24 10/25/24 Unknown History
levothyroxine 125 mcg tablet 125 mcg PO DAILY 10/25/24 10/25/24 Unknown History
(Synthroid)
magnesium hydroxide 400 mg/5 mL 2,400 mg PO DAILYPRN PRN i fno bm 10/25/24 10/25/24 Unknown History
oral suspension (Milk of Magnesia) by 3rd day
magnesium oxide 400 mg PO DAILY 10/25/24 10/25/24 Unknown History
metoprolol succinate 100 mg 100 mg PO BID 10/25/24 10/25/24 Unknown History
tablet,extended release 24 hr
(Toprol XL)
ondansetron HCl 4 mg tablet 4 mg PO Q8HPRN PRN nausea 10/25/24 10/25/24 Unknown History
oxycodone-acetaminophen 10 mg-325 1 tab PO Q6HPRN PRN severe pains 10/25/24 10/25/24 Unknown History
mg tablet (Percocet)
pantoprazole 40 mg tablet,delayed 40 mg PO DAILY 10/25/24 10/25/24 Unknown History
release (Protonix)
polyethylene glycol 3350 17 gram 17 g PO DAILYPRN PRN constipation 10/25/24 10/25/24 Unknown History
oral powder packet (Miralax)
prednisone 10 mg tablet 40 mg PO DAILY 10/25/24 10/25/24 10/25/24 History
prednisone 10 mg tablets in a dose 10 mg PO DIRECTED 10/25/24 10/25/24 Unknown History
pack
repaglinide 1 mg tablet 1 mg PO DAILYPRN PRN if bs above 10/25/24 10/25/24 Unknown History
250
rivaroxaban 15 mg tablet (Xarelto) 15 mg PO DAILY 10/25/24 10/25/24 Unknown History
sodium phosphates 19 gram-7 118 ml SC DAILYPRN PRN if no bm 10/25/24 10/25/24 Unknown History
gram/118 mL enema (Fleet Enema) aftr dulcolax
sucralfate 1 gram tablet (Carafate) 1 g PO BID 10/25/24 10/25/24 Unknown History
therapeutic multivitamin 1 tab PO DAILY 10/25/24 10/25/24 Unknown History
tramadol 50 mg tablet 50 mg PO Q8HPRN PRN moderate pains 10/25/24 10/25/24 Unknown History
zolpidem 12.5 mg tablet,extended 12.5 mg PO HSPRN PRN sleep 10/25/24 10/25/24 Unknown History
release,multiphase (Ambien CR)
Active Medications
Generic Name Dose Route Start Last Admin
Trade Name Freq PRN Reason Stop Dose Admin
Albuterol/Ipratropium 3 ml 10/26/24 08:00 10/26/24 11:15
Ipratropium 0.5/Albuterol 3 Mg (3 Ml Ampul) INH 3 ml
R QID ADONAY Administration
Protocol
Albuterol/Ipratropium 3 ml 10/25/24 22:22 10/25/24 22:30
Ipratropium 0.5/Albuterol 3 Mg (3 Ml Ampul) INH 3 ml
R Q4HPRN PRN Administration
SOB
Protocol
Dextrose 12.5 grams 10/25/24 23:59
Dextrose 50% (0.5 Grams/Ml) 50 Ml Syringe IV 11/22/24 23:58
[id number] PRN
BLOOD GLUCOSE < 70
Fentanyl Citrate 50 mcg 10/25/24 22:15 10/26/24 03:58
Fentanyl (50 Mcg/Ml) 100 Mcg/2 Ml Ampul IV 11/08/24 22:14 50 mcg
Q1HPRN PRN Administration
vent dyssnochrony
Furosemide 60 mg 10/26/24 08:00 10/26/24 09:49
Furosemide 100 Mg (10 Mg/Ml) 10 Ml Vial IV 11/23/24 07:59 Not Given
DAILY ADONAY
Hydrocortisone Sodium Succinate 100 mg 10/26/24 16:00
Hydrocortisone Sodium Succinate 100 Mg/2 Ml Vial IV 11/23/24 15:59
Q8 ADONAY
Doxycycline Hyclate 100 mg/ 260 mls @ 260 mls/hr 10/26/24 08:00 10/26/24 07:52
Sodium Chloride IV 260 mls
Q12 ADONAY Administration
Norepinephrine Bitartrate 4 mg in 250 mls @ 0 mls/hr 10/25/24 23:30 10/26/24 12:21
Levophed IV 250 mls
PER PROTOCOL ADONAY Administration
Protocol
Per Protocol
Insulin Human Regular 100 units in 100 mls @ 0 mls/hr 10/25/24 23:45 10/26/24 07:37
Novolin R Insulin Infusion IV 100 mls
PER PROTOCOL ADONAY Administration
Protocol
Per Protocol
Fentanyl Citrate 1,000 mcg in 100 mls @ 0 mls/hr 10/26/24 04:00 10/26/24 03:58
Sublimaze IV 100 mls
PER PROTOCOL ADONAY Administration
Protocol
Per Protocol
Piperacillin Sod/Tazobactam Sod 3.375 gram in 50 mls @ 100 mls/hr 10/26/24 12:00 10/26/24 12:37
Zosyn IV 50 mls
Q6H ADONAY Administration
Insulin Aspart 0 units 10/26/24 07:30 10/26/24 12:30
Insulin Aspart Moderate Resistance 300 Units/3 Ml Pen.Injctr SC 11/23/24 07:29 Not Given
AC ADONAY
Protocol
Metoprolol Tartrate 7.5 mg 10/25/24 23:00 10/26/24 12:30
Metoprolol 5 Mg/5 Ml Vial IV 11/22/24 22:59 Not Given
Q4 ADONAY
Ondansetron HCl 4 mg 10/25/24 21:54
Ondansetron 4 Mg/2 Ml Vial IV 11/22/24 21:53
Q6HPRN PRN
NAUSEA/VOMITING
Pantoprazole Sodium 40 mg 10/26/24 08:00 10/26/24 07:53
Pantoprazole Sodium 40 Mg/10 Ml Vial IV 11/23/24 07:59 40 mg
DAILY ADONAY Administration
Sodium Chloride 0 flush 10/25/24 21:00
Sodium Chloride 0.9% (Flush) Syringe IV 11/22/24 20:59
PER PROTOCOL ADONAY
Sodium Chloride 10 ml 10/26/24 08:00 10/26/24 07:53
Sodium Chloride 0.9% (Preservative Free) 10 Ml Vial IV 11/23/24 07:59 10 ml
DAILY ADONAY Administration
Review of Systems
-
Unable to obtain full review of systems at this time due to: Patient Intubation
History Source: Family
Physical Exam
-
General: Intubated, Morbidly Obese and Other (critically ill appearing )
HEENT: Negative Jaundice
Cardiology: Irregular Rate/Rhythm
Pulmonary: Rhonchi
GI: Soft; Negative Distended
Musculoskeletal: Other (1+ edema. left anterior grover wound dressing clean. chronic stasis/wound skin changes on L>R. )
Hematologic / Lymphatic: Other (extensive ecchymosis on arms bilaterally, lip, left flank )
Labs
Lab Results
WBC 30.2 10^3/uL (4.8-10.8) H 10/26/24 03:43
RBC 2.20 10^6/uL (4.70-6.10) L 10/26/24 03:43
Hgb 8.3 g/dL (13.0-18.0) L 10/26/24 10:37
Hct 24.0 % (39.0-52.0) L 10/26/24 10:37
MCV 99.5 fL (80.0-94.0) H 10/26/24 03:43
MCH 32.3 pg (27.0-31.0) H 10/26/24 03:43
MCHC 32.4 g/dL (33.0-37.0) L 10/26/24 03:43
RDW 16.3 % (11.5-14.5) H 10/26/24 03:43
Plt Count 133 10^3/uL (130-400) 10/26/24 03:43
MPV 12.0 fL (7.4-10.4) H 10/26/24 03:43
Abs Immat Gran (auto) 1.6 10^3/uL (0-0.05) H 10/26/24 03:43
Absolute Neuts (auto) 27.7 10^3/uL (1.4-6.5) H 10/26/24 03:43
Absolute Lymphs (auto) 0.2 10^3/uL (1.2-3.4) L 10/26/24 03:43
Absolute Monos (auto) 0.5 10^3/uL (0.1-0.6) 10/26/24 03:43
Absolute Eos (auto) 0.1 10^3/uL (0-0.7) 10/26/24 03:43
Absolute Basos (auto) 0.1 10^3/uL (0-0.2) 10/26/24 03:43
Immature Gran % 5.2 % (0-0.5) H 10/26/24 03:43
Neutrophils % 91.9 % (42.2-75.2) H 10/26/24 03:43
Lymphocytes % 0.7 % (20.5-51.1) L 10/26/24 03:43
Monocytes % 1.8 % (1.7-9.3) 10/26/24 03:43
Eosinophils % 0.2 % (0-6) 10/26/24 03:43
Basophils % 0.2 % (0-2) 10/26/24 03:43
Creatinine 2.7 mg/dL (0.7-1.3) H 10/26/24 03:44
Vital Signs
Vital Signs
Temp Pulse Resp BP Pulse Ox
99.1 F 77 12 141/47 98
10/26/24 12:49 10/26/24 12:49 10/26/24 12:49 10/26/24 12:49 10/26/24 12:49
--- NOTE | 2024-10-26 12:58 | W.PN.UPDATE ---
Update Note
Progress Note Update
Reviewed with and son at bedside at length
provided full binder with medical records
Patient was evaluated at [facility] CT surgery and [facility] CT surgery regarding significant valvular disease
Underwent aortic valve replacement with bioprosthetic valve and bypass surgery at [facility] in 2017 unfortunately, developed
Significant mitral valve disease. Severe calcification, severe mitral stenosis noted as of echo 05/10/2023
At that time, patient was told by both [facility] and [facility] that surgical erection is not possible. At that time EF 60%, RV was normal size and function
Patient also has pulm nodules which have been followed over the past few years
is stated that since his evaluation for mitral valve surgery, he has deteriorated significantly
and son are asking questions about focusing on comfort, withdrawal of care. This is not unreasonable after reviewing his records over the past few years and the extent of his severe valvular disease, severe mitral stenosis
This will be an ongoing discussion
All questions answered
Emotional support provided
TCCT spent reviewing records and reviewing the above 20 min
--- NOTE | 2024-10-26 13:50 | CM ---
human resource manager reviewed patient's chart and met with patient, spouse and son at bedside. Patient is currently intubated, patient was admitted from [facility], where patient had been for 16 hours, and now admitted to
[facility]. Per spouse and son at bedside, prior to admission to [facility], patient lives with spouse used a rollator in the morning but in the after noon was able to ambulate short distances. Patient with chronic wounds and Bipap
per chart.
Plan; Will follow with progress for discharge planning, patient's spouse is not agreeable to patient returning to [facility].
[2024-10-26 14:29] LABS: Glucose - Point of Care 95 mg/dl (70-99)
--- NOTE | 2024-10-26 15:47 | PTCARENOTE ---
patient with increased signs discomfort, fentanyl bolus, gtt titration per work list. remains on 60%, requiring frequent ett suctioning for large amounts dai thick sputum, pulse oximeter 80's with turning. incontinent large amount pasty brown stool.
continues to bleed from wounds, mid line site. ngt drainage cassidy garrett hosptilist resident at bedside, labs sent
[2024-10-26 15:48] LABS: Lactic Acid 1.8 mmol/L (0.7-2.0)
[2024-10-26 15:52] LABS: Hematocrit 21.7 % (39.0-52.0); Hemoglobin 7.5 g/dL (13.0-18.0); Mean Corp Hgb Conc. 34.6 g/dL (33.0-37.0); Mean Corpuscular Hgb 32.1 pg (27.0-31.0); Mean Corpuscular Volume 92.7 fL (80.0-94.0); Mean Platelet Volume 13.5 fL (7.4-10.4); Platelet Count 110 10^3/uL (130-400); Red Blood Cell Count 2.34 10^6/uL (4.70-6.10); Red Cell Dist. Width 19.3 % (11.5-14.5); White Blood Cell Count 28.9 10^3/uL (4.8-10.8)
[2024-10-26] MEDS: SOLU-CORTEF 100 MG IV (16:03)
[2024-10-26 16:06] LABS: % Basophils 0.2 % (0-2); % Eosinophils 0.1 % (0-6); % Immature Granulocytes 4.6 % (0-0.5); % Lymphocytes 1.8 % (20.5-51.1); % Neutrophils 90.3 % (42.2-75.2); Absolute Basophils 0.1 10^3/uL (0-0.2); Absolute Immature Granulocytes 1.3 10^3/uL (0-0.05); Absolute Lymphocytes 0.5 10^3/uL (1.2-3.4); Absolute Monocytes 0.9 10^3/uL (0.1-0.6); Nucleated Red Blood Cells % 3.8 % (-)
[2024-10-26 16:12] LABS: Glucose - Point of Care 97 mg/dl (70-99)
--- NOTE | 2024-10-26 17:08 | PTCARENOTE ---
reviewed patient assessments, plan with patient spouse,. she is considering withdraw from care tomorrow. she is conversing with her family. Dr Richey updated. OK to hold on PICC insertion for now
--- NOTE | 2024-10-26 17:37 | PTCARENOTE ---
unit PRBC initiated without signs transfusion reaction. patient family having continued discussion about goals of care. request to VAT RN to place another midline.
[2024-10-26 18:01] LABS: Glucose - Point of Care 101 mg/dl (70-99)
--- NOTE | 2024-10-26 19:15 | PTCARENOTE ---
2ND MIDLINE PLACED FOR PVA, REQUESTED BY PRIMARY RN, PICC ORDER ON HOLD D/T FAMILY DECIDING PLAN OF CARE, WILL CONT TO MONITOR FOR PICC NEEDS
[2024-10-26 20:26] LABS: Glucose - Point of Care 75 mg/dl (70-99)
--- NOTE | 2024-10-26 21:00 | PTCARENOTE ---
Assumed care of pt at 1900. Received pt intubated, #8.[address] [facility] [address]/60/5. Received pt on Levophed at 8mcg/min, Fentanyl at 100mcg/hr, and insulin drip (titrating per critical care glycemic protocol). Pt finished unit of PRBC shortly
after start of shift. SR with PACs and BBB on monitor, HR 80s-90s. SpO2 93-97% on currently vent settings. See nursing shift assessment flowsheet for full physical assessment details.
[2024-10-26 21:36] LABS: Glucose - Point of Care 96 mg/dl (70-99)
[2024-10-26 22:41] LABS: Glucose - Point of Care 101 mg/dl (70-99)
[2024-10-26 23:42] LABS: Glucose - Point of Care 99 mg/dl (70-99)
[2024-10-27] MEDS: SOLU-CORTEF 100 MG IV ×2 (00:27→08:29)
[2024-10-27] MEDS: ZOSYN 50 IV ×3 (00:27→13:13)
[2024-10-27 00:44] LABS: Glucose - Point of Care 97 mg/dl (70-99)
--- NOTE | 2024-10-27 01:56 | PTCARENOTE ---
Midnight assessment unchanged. Remains on same drips and same vent settings. SR with frequent PACs, HR 80s.
[2024-10-27 02:21] LABS: Glucose - Point of Care 105 mg/dl (70-99)
[2024-10-27 03:45] LABS: Glucose - Point of Care 86 mg/dl (70-99)
[2024-10-27 04:03] LABS: Hematocrit 24.9 % (39.0-52.0); Hemoglobin 8.5 g/dL (13.0-18.0); Mean Corp Hgb Conc. 34.1 g/dL (33.0-37.0); Mean Corpuscular Hgb 31.4 pg (27.0-31.0); Mean Corpuscular Volume 91.9 fL (80.0-94.0); Mean Platelet Volume 12.6 fL (7.4-10.4); Platelet Count 105 10^3/uL (130-400); Red Blood Cell Count 2.71 10^6/uL (4.70-6.10); Red Cell Dist. Width 18.6 % (11.5-14.5); White Blood Cell Count 29.7 10^3/uL (4.8-10.8)
[2024-10-27 04:06] LABS: APTT 34.9 Sec (23.4-35.0); INR 1.63; PT 19.5 Sec (11.4-14.6)
[2024-10-27 04:07] LABS: Fibrinogen 341 MG/DL (199-459)
[2024-10-27 04:32] LABS: Albumin 2.7 g/dl (3.5-5.0); Alkaline Phosphatase 117 U/L (38-126); Blood Urea Nitrogen 119 mg/dl (9-20); Calcium 8.7 mg/dl (8.4-10.2); Carbon Dioxide 27 mmol/L (22-30); Chloride 99 mmol/L (98-107); Estimated Creatinine Clearance 22 ml/min; Glucose 60 mg/dl (70-99); Potassium 4.8 mmol/L (3.5-5.1); Sodium 134 mmol/L (135-145); Total Bilirubin 2.9 mg/dl (0.2-1.3); Total Protein 4.8 g/dl (6.3-8.2); eGFR 19.44
[2024-10-27 04:50] LABS: ALT (SGPT) 7055 U/L (0-50); AST (SGOT) 5860 U/L (17-59)
[2024-10-27 05:10] LABS: Glucose - Point of Care 94 mg/dl (70-99)
[2024-10-27 05:57] VITALS: BMI 32.6
[2024-10-27] MEDS: LEVOPHED 250 IV (06:03)
[2024-10-27] MEDS: SUBLIMAZE 50 MCG IV (06:10)
[2024-10-27] MEDS: NOVOLIN R INSULIN INFUSION 100 IV (06:13)
[2024-10-27 06:31] LABS: Glucose - Point of Care 110 mg/dl (70-99)
--- NOTE | 2024-10-27 06:45 | PTCARENOTE ---
0400 assessment unchanged. CHG cloth bath done and linens changed. Pt continues to have random areas of bleeding, new skin tear noted to medial left calf this AM which had not been there, dressing applied. Remains on insulin, fentanyl, and levophed
drips, SR 80s on monitor, PACs not quite as frequent. SpO2 97% on same vent settings.
--- NOTE | 2024-10-27 07:17 | W.PN.HOSP.TC ---
Addendum entered and electronically signed by Bobby Artis MD 10/27/24 17:11:
Seen and examined by me independently in collaboration with the medical diagnostic radiographer.
Lab data and imaging data reviewed.
Addendum as below :
Patient with multisystem organ failure from suspected septic shock from pneumonia.
Patient remains hemodynamically unstable requiring vasopressors. Also remains in respiratory failure requiring vent support. He remains also oliguric with acute kidney injury.
Today he started to display generalized myoclonic jerks. His admitting CT head was okay without any acute findings but with his multiorgan dysfunction and possible DIC rule out any acute intracranial events. Check a CT of the head without contrast
and also EEG. Consult neurology.
Discussed with HARDWOOD FALLER
There were changing goals of level of care and he was made DNR by .
Today crater and packer had a long discussion with the regarding the poor prognosis with multiorgan failure.
I was notified by crater and packer that is opted for comfort measures and Terminally extubated and passed peacefully today.
Total Critical Care Time_35____ minutes. I was immediately available to the patient and staff. I personally examined, reviewed labs, diagnostic images/reports, interpretations, treatment plans, discussed patient care with other providers and
family or caregivers (if patient is unable to make decisions), entered orders as appropriate and documented the medical record.
Original Note:
Today's Communication/Plan
-
C/w Abx, wean sedation and mechanical ventilation per crater and packer team. Monitor H&H/plts. Continue goals of care discussion with family.
Assessment / Plan
Assessment / Plan
68 year old male with a complex past medical history who is not known to [facility]
#Probable DIC
- Ecchymotic with oozing ports.
- Fibrinogen ordered, Stat H&H, along with repeat coag tests given high PT & APTT.
- 2U FFP ordered. C/t monitor platelets, trasnfuse if <20k or hgb <7
#Cardiac Arrest
- Asystole at 22:00 on 10/25/24. ROSC after 2 rounds of CPR. Currently intubated and sedated. Requiring pressors. Discussion had with and patient was made DNR. Further discussions regarding comfort care in the setting of grim prognosis.
- CT chest demonstrating chronic midline sternotomy dehiscence
- Head CT demonstrating No acute intracranial abnormalities. EEG showing no seizure activity.
- Neurology following
#Acute on Chronic Hypoxic Respiratory Failure
- Still on mechanical ventilatory support. Will wean sedation and ventilation per crater and packer team.
#Liver Failure, likely shock liver w/ multifactorial component - Tbili/AST/ALT 1.6/431/330. Unclear history. AST/ALT >7500; now down trending but still in 5000/7000.
#Altered Mental Status, possibly secondary to Hypercapnia from AHRF
- Head CT on admission showing no acute intracranial abnormalities. Ammonia levels wnl
- Now sedated and intubated as above
#Possible NSTEMI
#H/o Coronary Artery Stenting
- Troponins elevated to 55; downtrending
- ECG showing rate controlled A flutter. Repeat ECG showing the same.
- Cardiology following. Rate control is priority in the setting of Severe MS to preserve EF. ECHO showing 60-65% EF
#Acute Exacerbation of CHF (HFpEF)
#Severe Mitral Valve Stenosis
- no prior echo, on 3mg Bumex as outpatient, pitting edema on exam, ProBNP 42686. Echo showing EF 60-65% w/ severe mitral stenosis & AVR.
- holding lasix in the setting of likely ATN
- Cardiology and nephro following
#Sepsis, likely secondary to Pneumonia
- patient w/ leukocytosis, lactic acidosis, tachypnea on presentation with possible source of infection (PNA)
- BCx and Sputum cultures pending. UA pending.
- Given one dose of IV Vancomycin/Cefepime/Flagyl. Now on IV Doxy (for NPO), Vancomycin, and Cefepime (dose renally for CrCl)
- COVID/Flu (-), urine strep/legionella/MRSA (-)
- Holding fluids in the setting of likely CHF exacerbation
- ID Following
#Pneumonia, likely present on admission
- H/o hospitalization for PNA at [facility] (will obtain records). CXR showing Mid LL and RLL consolidation. On Abx as above. Follow cultures as above.
- CT chest showing (1) severe RLL Pneumonia w/ possible aspiration and endobronchial occlusion of the RRL, (2) mild LLL pna, (3) sm L pleural effusion
#Paroxysmal Afib
- ECG shows rate control, will repeat in the AM.
- Holding home meds as patient is NPO.
- C/w IV Lopressor 7.5mg Q4
- Cardiology following
#Acute Tubular Necrosis
#NATHANIEL on CKD, likely multifactorial (post/pre renal)
- Data Software Engineer reportedly 1.3 at [facility], in ED 2.0. BUN 97. Now 2.7, BUN 109, urine output <5cc/hr.
- UA showing RBCs & minimal bacteria.
- nephro following; not a candidate for dialysis at this time
- Will place Bearden
#Abdominal/Suprapubic Pain
#Mechanical Fall w/ reported trauma to R chest wall
- Unable to obtain proper history from patient due to AMS. explained pt had complaints of suprapubic pain and dysuria. Patient tender to palpation in the RUQ.
- large ecchymotic lesions on the R/L flanks
- CT abd/pelvis showing (1) acute left obturator hematoma, (2) acute retroperitoneal hematoma of L iliopsoas
#Hyperphosphatemia
#Hypermagnesemia
- elevated, will observe follow
#ITP, chronic - per patient has chronic history of thrombocytopenia for which he sees a investment specialist. Heme/Onc Following.
#Possible Colonic Neoplasm? - reports a positive cologuard test. Had follow up scheduled for 10/10/24, however never went due to prior hospitalization at [facility].
#NIDDM - Glucose on admission 308. Holding oral antiglycemic agents at this time. patient not one home insulin and NPO. Will start on MDISS.
#Anemia - Hgb 8.1 on admission; no prior lab values. Pending records from [facility]. Will transfuse if Hgb <7. patient's consented. s/p 2U pRBC.
#COPD - On chronic prednisone as outpatient. Given Decadron in ED. Will continue with stress dose steroids Hydrocortisone 100mg q8. Still on BiPAP. Will hold Duonebs/Albuterol for now.
#Essential Hypertension - holding home medications due to NPO. On Lopressor IV. Cardiology following.
#Sleep Apnea - On BiPAP.
#Rheumatoid Arthritis - not on DMARDs
#Gout - holding allopurinol
#Hypothyroidism - holding levothyroxine
#H/o Nephrolithiasis
#H/o PE
Diet - NPO
DVT PPx - Rectal Aspirin for tonight, will re-evaluate in AM
Code Status - Full Code
Anticipated Discharge: > 48 hours
Subjective/Interval History
-
Overnight his skin lesions continued to bleed without signs of improvement. He has developed myoclonus. He received an additional unit of pRBCs overnight.
Objective Data
-
Labs:
Laboratory Results
10/27/24 10/27/24 10/27/24
03:33 09:00 15:00
WBC 29.7 H
Hgb 8.5 L Pending Pending
Hct 24.9 L Pending Pending
Plt Count 105 L
PT 19.5 H
INR 1.63
APTT 34.9
Sodium 134 L
Potassium 4.8
Chloride 99
Carbon Dioxide 27
BUN 119 H*
Creatinine 3.3 H
Glucose 60 L
Calcium 8.7
Total Bilirubin 2.9 H
AST 5860 H*
ALT 7055 H*
Alkaline Phosphatase 117
Vital Signs:
Vital Signs
Temp Pulse Resp BP Pulse Ox
99.5 F 96 20 134/44 89
10/27/24 03:41 10/27/24 06:30 10/27/24 06:30 10/26/24 17:10 10/27/24 06:30
I&O
10/26/24 10/27/24 10/28/24
06:59 06:59 06:59
Intake Total 523.0 / 581.0 2726.7 / 2726.7
Output Total 129 / 129 123 / 123
Balance 394.0 / 452.0 2603.7 / 2603.7
Review of Systems
-
Unable to obtain full review of systems at this time due to: Patient Intubation
Physical Exam
-
General: Intubated and Appears Chronically Ill
HEENT: Normocephalic, Atraumatic, Nose Appears Normal, Ears Appear Normal and Other (Labial petechiae)
Respiratory: Rales, Rhonchi and Other (On mechanical ventillation); Negative Wheezes
Cardiac: S1/S2, Irregular Rhythm and Tachycardic; Negative Murmur
Breast: N/A
GI: Soft, Nondistended and Normal Bowel Sounds
Genito-urinary: Bearden and Other (small amount of michael colored urine)
Musculoskeletal: No Clubbing, No Cyanosis, Edema, Right Lower Extrem and Edema, Left Lower Extrem
Skin: IV Access / Catheter Site and Other (Scattered ecchymotic plaques and macules, multiple oozing/bleeding skin lesions with fresh dressings that have already soaked)
Neuro: Sedated and Other (Myoclonus)
[2024-10-27] MEDS: SUBLIMAZE 100 IV (07:20)
[2024-10-27] MEDS: DUONEB 3 ML INH ×2 (07:25→12:03)
[2024-10-27 07:34] LABS: Glucose - Point of Care 118 mg/dl (70-99)
--- NOTE | 2024-10-27 08:15 | PTCARENOTE ---
Received pt @ change of shift. Intubated/sedated w b/l soft limb restraints/4 rails- see flow sheet. Pupils 2mm/sluggish; L eye deviates outward. Opens eyes spont but does not track; does not follow commands. Involuntary movements similar to
myoclonic activity. MD team made aware of neuro status SR w BBB w PAC's; +2 anasarca. Doppler DP/PT pulses; R weaker than L. SpO2 95% on vent settings AC12/500/.50/+5. #8.0 ett, 24 lip on R side. Auscultated coarse breath sound w scattered
rhonchi throughout. Suctioned for lg amt of thick/dai/bloody tinged secretions. Hypoactive BS, and obese. NGT in place; 43cm in length, verified w off-going shift. Temp sensing sinclair of michael urine, oliguric. Mx wound dressings draining, clean
covidiens applied to all extremities. L midline w fent/levo gtts- see flow sheet. #18 L AC w insulin gtt on glycemic protocol- see flow sheet. R midline patent, dressing reinforced. L rad A-line transduced, calibrated, and monitored; all ports
patent and secured. Hygiene provided and repositioned per protocol. Awaiting family to bedside to potential goals of care discussion w .
--- NOTE | 2024-10-27 08:28 | W.PN.NEPH.PH ---
Today's Communication / Plan
-
Patient critically ill
Remains intubated on pressor support to keep systolic blood pressure greater than 100
Can utilize IV Lasix if needed 80 mg IV
Zosyn dosage may have to be decreased given compromised GFR ,now less then 20ml/minute
Family may transition to comfort care
Assessment/Plan
-
IMP:
Asystole-card arrest -10/25
NATHANIEL on CKD stage unknown (baseline creat 1.3)
acute on chronic hypoxemic resp failure
TME-encephalopathy
sepsis--likely due to pna
NSTEMI
new aflutter
CHF unknown type
mitral stenosis
Aortic stenosis with bovine valve replacement
anemia--likely of chronic disease
hx of ITP?
new diagnosis of RA
JOSE
type 2 DM
transaminitis
positive cologard test
Small retroperitoneal bleed per abdominal imaging
gout
hypothyroid
prednisone dependent COPD/asthma
HLD
chronic pain with narcotic dependency?
HX of DVT/PE
skin graft to right leg
hyponatremia
h/o falls
Recent mechanical fall trauma to the right chest wall
10/10/2024, hospitalized at [facility]
Plan:
A/w AMS, acute on chr resp failure, card arrest
NATHANIEL likely prerenal and progressing to ATN , anuric with sinclair , creatinine now up to 3.3 and BUN 119, weights up
vol status difficult to assess, high BNP
ok for prn lasix, 80mg IV could be used but I do not think this will effective
pressors to maintain MAP >65
continue supportive care
he is with MODS with poor prognosis
not candidate for EVALUATION SPECIALIST-d/w on phone and agreed with plan
dose meds renally, abx per ID
d/w primary and nursing
Remains critically ill intubated worsening renal failure pressor dependent hypotension
32 minutes critical care time spent with patient
-
-
Date of Service: October 27, 2024
CC / HPI / ROS
-
Chief Complaint:
NATHANIEL
History of Present Illness:
NATHANIEL and azotemia worsening
Remains intubated on FiO2 of 100%
Hemodynamically labile on pressor support
Remains on Zosyn
Review of Systems:
An uric via Sinclair catheter
Intubated and sedated
Following
Labs
-
Labs:
WBC 29.7 10^3/uL (4.8-10.8) H 10/27/24 03:33
RBC 2.71 10^6/uL (4.70-6.10) L 10/27/24 03:33
Plt Count 105 10^3/uL (130-400) L 10/27/24 03:33
Sodium 134 mmol/L (135-145) L 10/27/24 03:33
Potassium 4.8 mmol/L (3.5-5.1) 10/27/24 03:33
Chloride 99 mmol/L (98-107) 10/27/24 03:33
Carbon Dioxide 27 mmol/L (22-30) 10/27/24 03:33
BUN 119 mg/dl (9-20) H* 10/27/24 03:33
Creatinine 3.3 mg/dL (0.7-1.3) H 10/27/24 03:33
eGFR 19.44 10/27/24 03:33
Glucose 60 mg/dl (70-99) L 10/27/24 03:33
Calcium 8.7 mg/dl (8.4-10.2) 10/27/24 03:33
Phosphorus 6.4 mg/dl (2.5-4.5) H 10/26/24 03:44
Spf-H-Pfaepwffvhk Pept 18327 pg/ml 10/25/24 14:23
Albumin 2.7 g/dl (3.5-5.0) L 10/27/24 03:33
Physical Exam
-
Vital Signs:
Vital Signs
Temp Pulse Resp BP Pulse Ox
99.5 F 85 12 134/44 96
10/27/24 03:41 10/27/24 07:33 10/27/24 07:33 10/26/24 17:10 10/27/24 07:33
Cardiovascular:: Regular rate and rhythm
Respiratory:: Bilateral: Coarse
Lung Excursion:: Normal
Abdomen:: Nontender and Soft
Bowel Sounds:: Decreased
Extremity Edema:: +2: Bilateral:
Sinclair Catheter: Yes
[2024-10-27] MEDS: PROTONIX IV 40 MG IV (08:29)
[2024-10-27] MEDS: VIBRAMYCIN 260 MG IV (08:29)
[2024-10-27] MEDS: NSS (PRESERVATIVE FREE) 10 ML IV (08:29)
[2024-10-27 08:33] LABS: % Basophils 0.2 % (0-2); % Lymphocytes 1.5 % (20.5-51.1); % Monocytes 1.6 % (1.7-9.3); % Neutrophils 93.7 % (42.2-75.2); Absolute Basophils 0.1 10^3/uL (0-0.2); Absolute Immature Granulocytes 0.9 10^3/uL (0-0.05); Absolute Lymphocytes 0.5 10^3/uL (1.2-3.4); Absolute Monocytes 0.5 10^3/uL (0.1-0.6); Absolute Neutrophils 27.8 10^3/uL (1.4-6.5); Nucleated Red Blood Cells % 2.2 % (-)
--- NOTE | 2024-10-27 08:41 | PN.DE.MGMTRT ---
Insulin Management
- -
10/27/2024: Diabetes Management Consult
68 year old male who presented [place] with septic shock/ bilateral PNA. Hospital course c/b cardiac arrest evening 10/26 now with ROSC, intubated on pressors. PMH: significant valvular disease with prosthetic valve in the past aortic valve
replacement 2017 at [facility], HTN, HLD, CAD stent 2017, A-Fib on Xarelto, COPD/Asthma, JOSE, CKD III, h/o PE, hx of LLE cellulitis chronic wounds with skin graft, h/o falls, hypothyroidism, h/o RA and T2DM. Was taking Repaglinide 1mg daily PRN for glucose
>250. A1C 7.2%, Cr 3.3, eGFR 19.44
Pt remains critically ill, intubated on pressor support
NPO, on IV steroids, Hydrocortisone 100mg Q8hrs, contributing to Hyperglycemia, requiring continuous insulin infusion
He is currently on the glycemic Protocol, glucose range 86 to 118, requiring 0.6 to 7 units of insulin/hr.
Will cont current diabetes care plan. There is consideration to transition to comfort care.
Will cont to follow and assess for readiness to transition off drip when medically stable
Diabetes History
- -
Type of Diabetes: 2
Pre-Admission Diabetes Regimen
10/27/24
03:33
Creatinine 3.3 H
Lab Results
Hemoglobin A1c 7.2 % (4.0-5.6) H 10/26/24 03:43
Insulin Pump Settings
IP Diabetes Regimen
10/26/24 10/26/24 10/26/24
09:25 10:32 11:26
Glucose
POC Glucose 126 H 98 96
10/26/24 10/26/24 10/26/24
12:28 14:19 16:01
Glucose
POC Glucose 104 H 95 97
10/26/24 10/26/24 10/26/24
17:50 20:11 21:17
Glucose
POC Glucose 101 H 75 96
10/26/24 10/26/24 10/27/24
22:25 23:29 00:26
Glucose
POC Glucose 101 H 99 97
10/27/24 10/27/24 10/27/24
02:10 03:32 03:33
Glucose 60 L
POC Glucose 105 H 86
10/27/24 10/27/24 10/27/24
04:49 06:20 07:22
Glucose
POC Glucose 94 110 H 118 H
Patient Education
[2024-10-27 09:18] LABS: Glucose - Point of Care 91 mg/dl (70-99)
[2024-10-27 09:23] LABS: Hematocrit 23.7 % (39.0-52.0); Hemoglobin 8.1 g/dL (13.0-18.0)
--- NOTE | 2024-10-27 10:38 | CON.NEURO ---
Neuro Assessment/Plan
Assessment
Anoxic encephalopathy following cardiac arrest
Prognosis for outcome is fair based on EEG, performed today, showing continuous activity and no evidence of seizure
Further, there is no evidence of edema by CT of head or dedifferentiation of intracranial structures
Of worse prognosis is the patient's evidence of myoclonus by examination
Best prognostication will take place at 72 hours after cardiac arrest. Current GCS is 3.
Plan
Attempt to limit all sedation
May utilize medication to remediate the patient's myoclonus in the form of levetiracetam
No clear indication at this time the patient would benefit from continuous EEG monitoring, check routine EEG, done
No clear indication patient would benefit from MRI imaging of the brain at this time
Check blood work for additional metabolic abnormalities
Will follow
Consultation
Order
Date of Consultation: 10/27/24
Requesting Provider: Hospitalist
Reason for Consult: Myoclonus
Subjective/Objective
Subjective Data
Date of Service: October 27, 2024
Unknown handed
Patient was brought to this hospital's emergency department due to acute onset dyspnea and change mental status while at rehabilitation Hospital. The patient was sent to rehabilitation after discharge from an outside hospital. According to medical
records, and discussion with professional medical care providers, the patient was treated at an outside hospital for pneumonia after a mechanical fall and newly diagnosed with atrial fibrillation. The patient was initiated on anticoagulants and
sent to the rehabilitation facility.
While at this hospital, the patient was diagnosed as having likely sepsis and rivaroxaban was held.
Hours after admission, the patient was described as having asystole requiring 2 rounds of CPR with epinephrine provided and intubation performed on October 26, 2022.
Objective Data
Vital Signs
Temp Pulse Resp BP Pulse Ox
37.5 C 87 13 134/44 94
10/27/24 07:20 10/27/24 10:00 10/27/24 10:00 10/26/24 17:10 10/27/24 10:00
Lab Results
10/27/24 03:33
PT 19.5 Sec (11.4-14.6) H 10/27/24 03:33
INR 1.63 10/27/24 03:33
APTT 34.9 Sec (23.4-35.0) 10/27/24 03:33
Sodium 134 mmol/L (135-145) L 10/27/24 03:33
Potassium 4.8 mmol/L (3.5-5.1) 10/27/24 03:33
BUN 119 mg/dl (9-20) H* 10/27/24 03:33
Glucose 60 mg/dl (70-99) L 10/27/24 03:33
Calcium 8.7 mg/dl (8.4-10.2) 10/27/24 03:33
Phosphorus 6.4 mg/dl (2.5-4.5) H 10/26/24 03:44
Iog-S-Gclmhqopxqb Pept 89994 pg/ml 10/25/24 14:23
Vitamin B12 > 1000 pg/ml (239-931) H 10/26/24 03:44
Patient Allergies
hydromorphone [From Dilaudid] Allergy (Verified 10/25/24 15:47)
Unknown
Review of Systems
-
Unable to obtain full review of systems at this time due to: Patient Intubation and Other (Unresponsiveness)
History Source: Patient
All other systems: Reviewed and negative
Physical Exam
-
General: No Apparent Distress, Intubated and Appears Stated Age
Eyes: OU Absent Papilledema, Able to visualize OU, Round OU and [place] Conjunctivae
HEENT: Anicteric and Moist Mucous Membranes
Neck: Full Range of Motion
Respiratory: No Dyspnea
Cardiac: No JVD
GI: Non-distended
Skin: Other (Diffuse cicatrices)
Extremities: No Clubbing, No Cyanosis and No Edema
Psych: Unable to Assess
Extended Neurological Exam
Mood & Affect: Unable to Assess
Attention Span & Concentration: Unresponsive to Verbal Stimuli and Unresponsive to Physical Stimuli; Negative Awake, Alert or Interactive
Memory: Unable to Assess
Tremor: Hand Tremor Absent and Head Tremor Absent
Involuntary Movement: Other (Proximal and distal independent, asynchronous myoclonic movements lasting for 0.5 seconds)
Speech: Unable to Assess
Cranial Nerve II: Left Eye: Pupillary Size Unremarkable, Unreactive and Unable to Assess Visual Rojas
Cranial Nerve II: Right Eye: Pupillary Size Unremarkable, Unreactive and Unable to Assess Visual Rojas
Cranial Nerves III, IV, : Extraocular Movement: Absent Doll's Eyes, Unable to Assess (Ptosis) and Other (Bilateral right greater than left exotropia 2+)
Cranial Nerve V: Facial Sensation: Unable to Assess
Cranial Nerve VII: Facial Symmetry: Normal Facial Symmetry
Cranial Nerve VIII: Hearing: Unable to Assess
Cranial Nerves IX, X: Palate Movement: Unable to Assess
Cranial Nerve XI: Shoulder Shrug: Unable to Assess
Cranial Nerve XII: Tongue Protusion: Unable to Assess
Muscle Strength, Overall: Negative Spontaneously Moves
Muscle Bulk & Tone: Bulk Unremarkable and Tone Unremarkable
Pronator Drift: Unable to Assess
Deep Tendon Reflexes: Absent Throughout
Cold Sensation: Unable to Assess
Vibration Sensation: Unable to Assess
Touch Sensation: Negative Withdrawal to Pain
Coordination: Unable to Assess
Babinski Sign: Absent Bilaterally
Gait & Station: Unable to Assess
Data Reviewed
-
CT Head: Report Reviewed and Image Reviewed
EEG: Ordered
Labs: Ordered and Report Reviewed
Reviewed with: Physician
Old Records: Summarized
Medications
-
Active Medications
Generic Name Dose Route Start Last Admin
Trade Name Freq PRN Reason Stop Dose Admin
Albuterol/Ipratropium 3 ml 10/26/24 08:00 10/27/24 07:25
Ipratropium 0.5/Albuterol 3 Mg (3 Ml Ampul) INH 3 ml
R QID ADONAY Administration
Protocol
Albuterol/Ipratropium 3 ml 10/25/24 22:22 10/25/24 22:30
Ipratropium 0.5/Albuterol 3 Mg (3 Ml Ampul) INH 3 ml
R Q4HPRN PRN Administration
SOB
Protocol
Dextrose 12.5 grams 10/25/24 23:59
Dextrose 50% (0.5 Grams/Ml) 50 Ml Syringe IV 11/22/24 23:58
[id number] PRN
BLOOD GLUCOSE < 70
Fentanyl Citrate 50 mcg 10/25/24 22:15 10/27/24 06:10
Fentanyl (50 Mcg/Ml) 100 Mcg/2 Ml Ampul IV 11/08/24 22:14 50 mcg
Q1HPRN PRN Administration
vent dyssnochrony
Furosemide 60 mg 10/26/24 08:00 10/26/24 09:49
Furosemide 100 Mg (10 Mg/Ml) 10 Ml Vial IV 11/23/24 07:59 Not Given
DAILY ADONAY
Hydrocortisone Sodium Succinate 100 mg 10/26/24 16:00 10/27/24 08:29
Hydrocortisone Sodium Succinate 100 Mg/2 Ml Vial IV 11/23/24 15:59 100 mg
Q8 ADONAY Administration
Doxycycline Hyclate 100 mg/ 260 mls @ 260 mls/hr 10/26/24 08:00 10/27/24 08:29
Sodium Chloride IV 260 mls
Q12 ADONAY Administration
Norepinephrine Bitartrate 4 mg in 250 mls @ 0 mls/hr 10/25/24 23:30 10/27/24 06:03
Levophed IV 250 mls
PER PROTOCOL ADONAY Administration
Protocol
Per Protocol
Insulin Human Regular 100 units in 100 mls @ 0 mls/hr 10/25/24 23:45 10/27/24 06:13
Novolin R Insulin Infusion IV 100 mls
PER PROTOCOL ADONAY Administration
Protocol
Per Protocol
Fentanyl Citrate 1,000 mcg in 100 mls @ 0 mls/hr 10/26/24 04:00 10/27/24 07:20
Sublimaze IV 100 mls
PER PROTOCOL ADONAY Administration
Protocol
Per Protocol
Piperacillin Sod/Tazobactam Sod 3.375 gram in 50 mls @ 100 mls/hr 10/26/24 12:00 10/27/24 06:13
Zosyn IV 50 mls
Q6H ADONAY Administration
Ondansetron HCl 4 mg 10/25/24 21:54
Ondansetron 4 Mg/2 Ml Vial IV 11/22/24 21:53
Q6HPRN PRN
NAUSEA/VOMITING
Pantoprazole Sodium 40 mg 10/26/24 08:00 10/27/24 08:29
Pantoprazole Sodium 40 Mg/10 Ml Vial IV 11/23/24 07:59 40 mg
DAILY ADONAY Administration
Sodium Chloride 0 flush 10/25/24 21:00
Sodium Chloride 0.9% (Flush) Syringe IV 11/22/24 20:59
PER PROTOCOL ADONAY
Sodium Chloride 10 ml 10/26/24 08:00 10/27/24 08:29
Sodium Chloride 0.9% (Preservative Free) 10 Ml Vial IV 11/23/24 07:59 10 ml
DAILY ADONAY Administration
Home Medications
�Medication �Instructions �Recorded
acetaminophen 325 mg tablet 650 mg PO Q6HPRN PRN mild pain 10/25/24
(Tylenol)
albuterol sulfate 90 mcg/actuation 2 puff inhalation R Q6HPRN PRN sob 10/25/24
aerosol inhaler
allopurinol 300 mg tablet 300 mg PO DAILY 10/25/24
aspirin 325 mg tablet 325 mg PO DAILY 10/25/24
atorvastatin 40 mg tablet (Lipitor) 40 mg PO HS 10/25/24
bisacodyl 10 mg rectal suppository 10 mg CA DAILYPRN PRN if no bm 10/25/24
(Dulcolax (bisacodyl)) aftr mom
bumetanide 1 mg tablet 3 mg PO DAILY 10/25/24
cholecalciferol (vitamin D3) 10 10 mcg PO DAILY 10/25/24
mcg (400 unit) tablet (Vitamin D3)
coQ10 (ubiquinol) 100 mg capsule 30 mg PO DAILY 10/25/24
diltiazem HCl 120 mg 120 mg PO DAILY 10/25/24
capsule,extended release 24 hr
docusate sodium 100 mg capsule 100 mg PO DAILY 10/25/24
(Colace)
ferrous sulfate 325 mg (65 mg 325 mg PO DAILY 10/25/24
iron) tablet
gabapentin 300 mg capsule 300 mg PO TID 10/25/24
levothyroxine 125 mcg tablet 125 mcg PO DAILY 10/25/24
(Synthroid)
magnesium hydroxide 400 mg/5 mL 2,400 mg PO DAILYPRN PRN i fno bm 10/25/24
oral suspension (Milk of Magnesia) by 3rd day
magnesium oxide 400 mg PO DAILY 10/25/24
metoprolol succinate 100 mg 100 mg PO BID 10/25/24
tablet,extended release 24 hr
(Toprol XL)
ondansetron HCl 4 mg tablet 4 mg PO Q8HPRN PRN nausea 10/25/24
oxycodone-acetaminophen 10 mg-325 1 tab PO Q6HPRN PRN severe pains 10/25/24
mg tablet (Percocet)
pantoprazole 40 mg tablet,delayed 40 mg PO DAILY 10/25/24
release (Protonix)
polyethylene glycol 3350 17 gram 17 g PO DAILYPRN PRN constipation 10/25/24
oral powder packet (Miralax)
prednisone 10 mg tablet 40 mg PO DAILY 10/25/24
prednisone 10 mg tablets in a dose 10 mg PO DIRECTED 10/25/24
pack
repaglinide 1 mg tablet 1 mg PO DAILYPRN PRN if bs above 10/25/24
250
rivaroxaban 15 mg tablet (Xarelto) 15 mg PO DAILY 10/25/24
sodium phosphates 19 gram-7 118 ml CA DAILYPRN PRN if no bm 10/25/24
gram/118 mL enema (Fleet Enema) aftr dulcolax
sucralfate 1 gram tablet (Carafate) 1 g PO BID 10/25/24
therapeutic multivitamin 1 tab PO DAILY 10/25/24
tramadol 50 mg tablet 50 mg PO Q8HPRN PRN moderate pains 10/25/24
zolpidem 12.5 mg tablet,extended 12.5 mg PO HSPRN PRN sleep 10/25/24
release,multiphase (Ambien CR)
Past History
Past History
ED Past Medical History: Arrthythmia (Atrial fibrillation), CHF, COPD, Hypercholesterolemia, NIDDM, [place], Valvular disease (Severe mitral stenosis), Hypothyroidism and Other (Pneumonia, asystole October 2024, DVT/PE April 2024, JOSE, chronic pain
syndrome with chronic narcotic therapy, ITP, rheumatoid arthritis diagnosed 2024); Negative Renal failure (Chronic renal insufficiency)
ED Past Surgical History: Cardiac (Aortic valve replacement 2016)
Social History
Tobacco: Smoker
Alcohol: None
Drug: None
Personal:
Living: with family
Family History
Family History: Other (Reviewed and noncontributory)
--- NOTE | 2024-10-27 11:07 | W.PN.CARDCBS ---
Today's Communication / Plan
-
Prognosis very guarded
Continue supportive care for now
Impression / Plan
-
Impression:
-Respiratory arrest and vent dependent respiratory failure with hypercapnia in the setting of known sleep apnea and COPD
-Respiratory arrest requiring CPR 10/25/2024
-Shock with renal dysfunction and severe hepatic dysfunction multisystem organ failure with lactic acidosis
-Acute HFpEF, proBNP 25,200
-Pneumonia
-Non-Q wave myocardial infarction with peak troponin 55 which was first troponin
History of possible CABG/coronary stents (2017). Obtain records.
-History of bioprosthetic AVR
-History of possibly severe mitral stenosis
-Atrial flutter/history of atrial fibrillation on oral anticoagulation
-Recent pulmonary embolism on oral anticoagulation
-ITP -recurrent
-Hyperlipidemia
-Diabetes
-Multiple falls with skin wounds and on CT scan retroperitoneal and other hematoma
-Now with easy bleeding and bruising
-Tobacco abuse
-COPD intermittently steroid-dependent now receiving hydrocortisone
-Sleep apnea
-Chronic kidney disease
-Hypothyroidism
-Aortic aneurysm 3.3 cm
-Anemia
-DNR CODE STATUS
Echo 10/26/2024: EF 60-65%, moderate to severe LVH, normal RV, moderate mitral stenosis, peak gradient 17 mmHg at heart rate 80, mean gradient 9, valve area is 1.5 cm to with trace MR, normal bioprosthetic aortic valve with trace AI, pulmonary artery
pressure 80-85 mm
Plan:
He remains critically ill with multisystem organ failure. Presumably septic shock, Non-ST segment elevation SC with peak troponin 55, acute HFpEF, vent dependent respiratory failure, suspected anoxic encephalopathy, severe mitral stenosis with
severe pulmonary hypertension, anemia and thrombocytopenia, shock liver, NATHANIEL on CKD. He is pressor dependent and sedated on fentanyl. Currently on norepinephrine and broad-spectrum antibiotics following PEA arrest
Will continue supportive care. Renew norepinephrine.
For SC and acute HFpEF, GDMT not an option at present given bleeding, anemia shock etc. Agree with holding IV furosemide at present.Defer to nephrology.
Prognosis is very guarded, option of comfort care is being considered by family which is likely appropriate.
We will continue to follow for now.
Progress Note - Ct Tech
Subjective
Date of Service: October 27, 2024:
68-year-old man admitted 10/25 with MSOF: Pneumonia, sepsis, PEA, vent dependent respiratory failure, NATHANIEL, acute HFpE, non-ST segment elevation myocardial infarction, peak troponin 55.2 and downtrending, shock liver, right bundle branch block left
anterior fascicular block, LVH, rheumatoid arthritis, AVR, mitral stenosis, recurrent ITP with DVT and pulmonary embolus, recent hospital stay at [facility]
Current meds: Furosemide 60 mg IV on hold, pantoprazole 40 IV daily, doxycycline, norepinephrine, IV insulin, IV fentanyl, hydrocortisone, Zosyn
134/44, pulse 87, resp rate 13, afebrile, intake output positive to 2 L, weight is normal, on ventilator, heading to CT scan, oozing from wounds on legs, marked ecchymoses, myoclonic movements, breath sounds difficult to auscultate,, abdomen obese,
2+ to 3+ edema, sedated, neuro therefore nonfocal, pupils 2 to 3 mm
1.6 kg, was 93 kg at admission chest x-ray with infiltrate and vascular congestion, left greater than right or infiltrate, cardiomegaly
White count 9.7, last hemoglobin 8.1, BUN/creatinine 113 and 3.3, creatinine had been 2.7, AST 5008 60, ALT 7005, today's troponin 33.8
Echo: EF 60-65%, moderate mitral stenosis, mean gradient
At heart rate 80, valve area 1.5 cm to, normal bioprosthetic aortic valve, pulmonary artery systolic pressure 80-85 mmHg
Objective
Labs:
10/27/24 03:33
Labs
Hgb 8.1 g/dL (13.0-18.0) L 10/27/24 09:09
Hct 23.7 % (39.0-52.0) L 10/27/24 09:09
Plt Count 105 10^3/uL (130-400) L 10/27/24 03:33
PT 19.5 Sec (11.4-14.6) H 10/27/24 03:33
INR 1.63 10/27/24 03:33
APTT 34.9 Sec (23.4-35.0) 10/27/24 03:33
Sodium 134 mmol/L (135-145) L 10/27/24 03:33
Potassium 4.8 mmol/L (3.5-5.1) 10/27/24 03:33
BUN 119 mg/dl (9-20) H* 10/27/24 03:33
Creatinine 3.3 mg/dL (0.7-1.3) H 10/27/24 03:33
Glucose 60 mg/dl (70-99) L 10/27/24 03:33
Troponins
10/25/24 10/25/24 10/25/24
14:23 19:28 21:54
Troponin I 55.200 H* 46.800 H* Cancelled
10/25/24 10/26/24 10/26/24
22:14 03:44 09:44
Troponin I 40.600 H* 39.400 H* 38.700 H*
10/26/24
15:22
Troponin I 33.800 H*
Vital Signs and I&O:
Vital Signs
Temp Pulse Resp BP Pulse Ox
37.5 C 87 13 134/44 94
10/27/24 07:20 10/27/24 10:00 10/27/24 10:00 10/26/24 17:10 10/27/24 10:00
Vital Signs
Temp Pulse Resp BP Pulse Ox
37.5 C 87 13 134/44 94
10/27/24 07:20 10/27/24 10:00 10/27/24 10:00 10/26/24 17:10 10/27/24 10:00
Intake & Output
10/25/24 10/26/24 10/27/24 10/28/24
07:59 07:59 07:59 07:59
Intake Total 581.0 / 641.0 2708.2 / 3007.7 351.5 / 351.5
Output Total 129 / 134 133 / 143 20 / 20
Balance 452.0 / 507.0 2575.2 / 2864.7 331.5 / 331.5
Physical Exam
Physical Exam
See above
[2024-10-27 11:11] LABS: Glucose - Point of Care 86 mg/dl (70-99)
--- NOTE | 2024-10-27 12:00 | PTCARENOTE ---
Pt. transported via bed for CT of head and back to rm [id number], no events on transport. Upon arrival back to unit, EEG initiated per orders; awaiting results. Family @ bedside, updated. Plan for goals of care discussion felicia PRICE. Safe environment
maintained.
[2024-10-27 12:25] LABS: Glucose - Point of Care 106 mg/dl (70-99)
--- NOTE | 2024-10-27 13:16 | W.PN.INTV ---
Today's Communication / Plan
Recommendations
Continue mechanical ventilation without change
Continue antibiotics and follow cultures
Continue antibiotics
Vancomycin no further necessary
Follow renal function electrolytes
Follow LFTs
Maintain sedation
Wean down vasopressors as able
Assessment
-
68-year-old male with complex medical history including valvular disease status post aortic valve replacement 2016, coronary disease with history of recent elevated troponin at [facility], fall 10/10 hospitalized at [facility] for 2 weeks
transferred to [facility], brought to [facility] within 24 hours with mental status changes. Patient found to be in acute renal failure with history of chronic kidney disease, hypotension, anemic, hyperglycemic,
acidemic, shock liver. Chest x-ray suggested bilateral pneumonia with right perihilar process. Imaging suggested small retroperitoneal hematoma with small hematoma left lower quadrant/groin. Patient developed asystole requiring ROSC, epi x 2,
intubation 10/25 in the ICU
VDRF, intubated 10/25
Asystole, CPR, epi x 2, ROSC
NSTEMI
Elevated troponin, 55
Recent elevated troponin at [facility], details unclear
Suspected sepsis, septic shock
Bilateral pneumonia per imaging
Shock liver, severe transaminitis
Acute renal insufficiency, history of CKD
Baseline 1.3
Leukocytosis
Anemia
Coagulopathy
Recent mechanical fall trauma to the right chest wall
10/10/2024, hospitalized at [facility]
Small retroperitoneal bleed per abdominal imaging
Atrial flutter/atrial fibrillation, new diagnosis in the last few weeks
Acute endplate fracture of T9 per imaging
Conditions present prior to admission
History of DVT/PE April 2024
In the setting of cellulitis per
Type 2 diabetes
Hypertension/hyperlipidemia
History of coronary disease
Thrombocytopenia, questionable history of ITP per records
Recently diagnosed with rheumatoid arthritis at [facility]
History of COPD on chronic steroids per
Follows pulmonary at [facility]
Obstructive sleep apnea
On BiPAP at [facility] and care home
Hypothyroidism
Chronic pain syndrome, chronic narcotic therapy
Plan/recommendations
Remains critically ill on mechanical ventilation, vasopressors.
Patient with respiratory/cardiac arrest 10/25, presents with mental status changes from care home, initial ABG pCO2 54/ hypoxia noted
Likely multifactorial with questionable component of pneumonia, heart failure, renal failure, shock liver
Continue mechanical ventilation without change:
Continue volume-cycled ventilation
AC 12/500/5/60%
Ppk 25
Wean FiO2 as able
Maintain sedation
ABG 7.35/48/167 on 100%(10/26/2024)
No plans for weaning at this time
Possible pneumonia based on chest x-ray: Perihilar infiltrate on the right.
Continue broad-spectrum antibiotics-doxycycline, cefepime
Imaging concerning for bilateral pneumonia, right perihilar process
-Follow leukocytosis/Afebrile. Sputum culture with usual respiratory zoey
Legionella and Streptococcus antibody negative
MRSA screening negative-DC vancomycin
Shock:
Hypotension likely multifactorial (question cardiogenic, sepsis, adrenal insufficiency, renal failure, shock liver)
Continue stress dose steroids. Patient on chronic prednisone for COPD
Continue norepinephrine to maintain mean arterial blood pressure 65 mmHg.
Lactic acid has cleared
Wean Levophed as able.
Cannot rule out cardiogenic component acute heart failure with preserved ejection fraction/non-ST elevation myocardial infarction peak troponin 55./Severe mitral stenosis with severe pulmonary hypertension.
Echocardiogram 10/26/2024: No regional wall motion abnormalities. LVEF 60 to 65%. Moderate to severe LVH. Normal right ventricular size. Normal right ventricular function. Moderate mitral stenosis. Estimated pulmonary artery pressure 80 to 85
mmHg.
Patient with newly diagnosed atrial fibrillation recently, on Xarelto as outpatient
Trend troponin trending lower to 33 now 10/27/2024.
Cardiology following
-
Hyperglycemia noted
Remains on insulin drip
Coagulopathy noted, improved INR 1.63. Follow daily CBC.
-Platelet trending lower likely due to sepsis-history of ITP.
Possible DIC component. Follow daily coags and platelet counts.
Patient does have history of VTE 04/2024 on low-dose DOAC
Hematology has seen the patient. Recommend supportive care. Transfuse as necessary.
Abdominal imaging suggests small acute retroperitoneal hematoma and a left obturator muscle hematoma 6.4 cm. Patient did fall around 10/10-holding anticoagulation
Follow hemoglobin for now
Ecchymosis on flank noted
Shock liver noted, due to septic shock, possibly cardiogenic shock, and ST elevation IN
Follow
Avoid hepatotoxic medications
Ammonia level 12
DVT prophylaxis: Hold anticoagulation due to anemia, oozing. Patient was on Xarelto as outpatient. Mechanical prophylaxis as able but this may be difficult due to lower extremity wounds
GI prophylaxis: Maintained Protonix
-
Dr. Navarro updated and son at the bedside 10/27/2024, prognosis is poor. They are contemplating withdrawal of care.
Continue with support for now.
-
Dr. Richey Had extensive discussion with by phone 10/26/2024. She was hesitating for intubation in the ER. She was present yesterday in the p.m. prior to code, was feeling strong about making DNR
She feels her has been through a lot over the past 10 months
She is requesting DNR status, no CPR
She also had questions regarding possible comfort, withdrawal of care. I encouraged her to discuss with family, son. This will be an ongoing discussion
For now continue with supportive care
-
Reviewed with critical care nursing, respiratory care, cardiology, primary service
-
Critical care statement: A total of 38 minutes of critical care time was provided for this patient today. This includes management of unstable vital signs, evaluation of the patient at bedside, reviewing the patient's pertinent medical records
including ventilator settings, arterial blood gases, radiographs, microbiology, laboratory evaluations and discussion with primary team, critical care nursing, and respiratory therapy.
Subjective Dataa
Subjective Data
Date of Service:
Date of Service: October 27, 2024
Chief Complaint: Extrusion Former Follow Up (Hypercapnic respiratory failure recurrent intubation mechanical ventilation/septic)
Subjective:
On mechanical ventilation
Sedated-unable to provide history.
On vasopressors, critically ill.
Review of Systems
General: Unobtainable - Sedation
Objective Data
Data Reviewed
Vital Signs / I&O / Oxygen:
Vital Signs
Temp Pulse Resp BP Pulse Ox
99.5 F 84 14 134/44 93
10/27/24 11:19 10/27/24 12:04 10/27/24 12:04 10/26/24 17:10 10/27/24 12:05
Intake and Output
10/26/24 10/27/24 10/28/24
06:59 06:59 06:59
Intake Total 523.0 / 581.0 2726.7 / 2766.2 424.1 / 424.1
Output Total 129 / 129 123 / 133 30 / 30
Balance 394.0 / 452.0 2603.7 / 2633.2 394.1 / 394.1
SaO2 [A/C] 95
SaO2 93
Physical Exam
General: Comfortable
HEENT: Normocephalic and Other (ET tube in place without secretion)
Cardiovascular: S1-S2
Respiratory: Clear and Non-Labored Respirations
GI: Soft and Distended (Obese)
Neurology: Other (Sedated mechanical ventilation, occasional ? myoclonic jerks)
Labs/Micro/Reports
Lab Data
10/27/24 03:33
Laboratory Results
10/25/24 10/27/24
19:41 03:33
PT 19.5 H
INR 1.63
APTT 34.9
pH 7.41
pCO2 45
pO2 61 L
HCO3 28.5 H
O2 Delivery Level
Microbiology
10/26/24 04:24 Endotracheal Respiratory Culture - Preliminary
Usual Respiratory Zoey
10/26/24 04:24 Endotracheal Gram Stain - Preliminary
10/25/24 15:06 Blood/Venous Blood Culture - Preliminary
No Growth in 24 hours- Final report to follow
10/25/24 14:23 Blood/Venous Blood Culture - Preliminary
No Growth in 24 hours- Final report to follow
10/25/24 22:15 Nose Nasal Screen MRSA (PCR) - Final
MRSA not detected - performed by PCR methodology.
10/25/24 22:15 Urine Legionella Urinary Antigen - Final
Negative for Legionella pneumophila Serogroup 1 antigen.
A negative result does not rule out the possiblity of
Legionella infection due to other serogroups or species of
Legionella. Clinical correlation is recommended.
10/25/24 22:15 Urine Streptococcus pneumoniae Antigen (M - Final
Negative for Streptococcus pneumoniae antigen.
A negative result does not exclude infection with
Streptococcus pneumoniae. Clinical correlation is
recommended.
10/25/24 14:23 Nasal Swab Influenza Types A & B (KEN) - Final
Negative for Influenza A & B, NAAT
Negative results must be combined with clinical observations
and patient history.
Nucleic Acid Amplification test (NAAT)performed on the
ZetrOZ platform.
[2024-10-27 13:19] LABS: Glucose - Point of Care 116 mg/dl (70-99)
--- NOTE | 2024-10-27 13:46 | W.PN.ID1 ---
Date of Service
Date of Service: October 27, 2024
Today's Communication
- c/w zosyn - dose is slightly higher for ESBL/pseudomonas but adjusted for crcl of 22 per DH protacol, agree that if crcl continuest to decline would then require a dose adjustment, possibly within the next 24 hours
- continue doxycycline for now
- steroids per pulmonary
Patient is critically ill, prognosis appears grim, family are considering hospice.
Assessment / Plan
Multisystem Organ Failure
Septic Shock
Hypoxemic Resp Failure
Pneumonia - most likely aspiration, with recent course of antibiotics
Acute L psoas hematoma vs abscess
Heart Valve replacement - AV valve
Non-Q wave myocardial infarction
NATHANIEL - progressive
- blood cultures x2 in progress - no growth to date
- sputum culture - ususal resp zoey
- may consider further intervention on the psoas collection such as sampling with IR if bacteremic and stabilizing, too unstable at this time to undertake that
- c/w zosyn - dose is slightly higher for ESBL/pseudomonas but adjusted for crcl of 22 per DH protacol, agree that if crcl continuest to decline would then require a dose adjustment, possibly within the next 24 hours
- continue doxycycline for now
- steroids per pulmonary
Patient is critically ill, prognosis appears grim, family are considering hospice.
Chief Complaint
-: Pneumonia and Other (shock)
Subjective / Review of Systems
afebrile
remains on pressors - dose titrating down
issues with bleeding
sedated
Vital Signs / Physical Exam
Vital Signs
Vital Signs
Temp Pulse Resp BP Pulse Ox
99.5 F 84 14 134/44 93
10/27/24 11:19 10/27/24 12:04 10/27/24 12:04 10/26/24 17:10 10/27/24 12:05
Physical Exam
Constitutional: Acutely Ill and Chronically Ill
Cardiovascular: Regular Rate and S1/S2; Negative Murmur or Rub
Pulmonary: Clear and Symmetric; Negative Wheezes or Rales
Gastrointestinal: Soft, Non Tender, Non Distended and Normal Bowel Sounds
Skin: Warm and Dry; Negative Rash or Jaundice
Neurological: Other (frequent twitching); Negative Awake
Objective Data
Lab Data
Lab Results
10/27/24 03:33
PT 19.5 Sec (11.4-14.6) H 10/27/24 03:33
INR 1.63 10/27/24 03:33
APTT 34.9 Sec (23.4-35.0) 10/27/24 03:33
Estimated Creat Clear 22 ml/min 10/27/24 03:33
Lactic Acid 1.8 mmol/L (0.7-2.0) 10/26/24 15:22
Total Bilirubin 2.9 mg/dl (0.2-1.3) H 10/27/24 03:33
GGT 47 U/L (15-73) 10/26/24 03:44
AST 5860 U/L (17-59) H* 10/27/24 03:33
ALT 7055 U/L (0-50) H* 10/27/24 03:33
Alkaline Phosphatase 117 U/L (38-126) 10/27/24 03:33
Most recent labs reviewed.
Micro Results:
10/26/24 04:24 Respiratory Culture - Preliminary
Endotracheal Usual Respiratory Zoey
Gram Stain - Preliminary
10/25/24 15:06 Blood Culture - Preliminary
Blood/Venous No Growth in 24 hours- Final report to follow
10/25/24 14:23 Blood Culture - Preliminary
Blood/Venous No Growth in 24 hours- Final report to follow
10/25/24 22:15 Nasal Screen MRSA (PCR) - Final
Nose MRSA not detected - performed by PCR methodology.
10/25/24 22:15 Legionella Urinary Antigen - Final
Urine Negative for Legionella pneumophila Serogroup 1 antigen.
A negative result does not rule out the possiblity of
Legionella infection due to other serogroups or species of
Legionella. Clinical correlation is recommended.
Streptococcus pneumoniae Antigen (M - Final
Negative for Streptococcus pneumoniae antigen.
A negative result does not exclude infection with
Streptococcus pneumoniae. Clinical correlation is
recommended.
10/25/24 14:23 Influenza Types A & B (KEN) - Final
Nasal Swab Negative for Influenza A & B, NAAT
Negative results must be combined with clinical observations
and patient history.
Nucleic Acid Amplification test (NAAT)performed on the
Tractive platform.
Care Review
Plan reviewed with: Physician (Dr Anita huggins)
--- NOTE | 2024-10-27 13:57 | EEG.RPT ---
Electroencephalogram Report
Recording
Date of EE10/27/24
Type of EEG: Routine
Length of EEG recordin minutes
Done with Video Recording: Yes
Patient Status: Inpatient
Recording Conditions: Drowsy
Hyperventilation Performed: No
Photic Stimulation Performed: Yes
Report
LESS THAN 1 HOUR REPORT
LESS THAN 1 HOUR EEG INTERPRETATION:
Moderately abnormal EEG for age due to diffuse bihemispheric slowing
CLINICAL CORRELATION:
This study was suggestive of diffuse cortical dysfunction without focal abnormality. No seizures were recorded.
Clinical correlation is advised.
METHODS:
A 21 channel digitized electroencephalogram (EEG) was performed at the bedside in the ICU. The 10/20 international system of electrode placement was used with ECG and lateral/vertical eye movements recorded. [facility] quantitative EEG analysis
software was utilized.
QUALITY OF STUDY:
Fair
ELECTROENCEPHALOGRAPHER IMPRESSION(S):
Background
Medium amplitude poorly organized anterior-posterior voltage gradient of delta maximum activity, mildly variable
There were no significant asymmetries of background activity noted.
Sleep
Not delineated
Photic Stimulation
Failed to activate the record
ECG
Normal sinus rhythm
Abnormal EEG Activity
None
--- NOTE | 2024-10-27 14:06 | CM ---
CM following re: discharge planning.
Discussed in Rounds, reviewed pt's chart, met with pt and family at bedside.
Per Rounds meeting, pt intubated 10/25/24, remains intubated, prognosis poor, goals of care discussion ongoing, continue supportive care.
Pt admitted from [facility] where she was less than 24 hours.
D/C plan: uncertain at this time and will depend on pt's progresses.
CM will follow with discharge plan updates as hospitalization progresses
[2024-10-27 14:22] LABS: Glucose - Point of Care 136 mg/dl (70-99)
[2024-10-27 15:17] LABS: Glucose - Point of Care 135 mg/dl (70-99)
[2024-10-27] MEDS: DUONEB INH (15:41)
--- NOTE | 2024-10-27 15:53 | W.PN.UPDATE ---
Update Note
Progress Note Update
Family have decided to proceed with comfort measures only.
Will extubate
Will add morphine as needed
May continue fentanyl temporarily after extubation.
[2024-10-27] MEDS: SUBLIMAZE 100 MCG IV (16:30)
[2024-10-27] MEDS: ATIVAN 2 MG IV (16:31)
[2024-10-27] MEDS: ROBINUL 0.2 MG IV (16:31)
--- NOTE | 2024-10-27 17:27 | PTCARENOTE ---
Family decision made to pursue comfort measures. Dr. Navarro made aware and further orders received for comfort care/terminal extubation. Pt. pre-medicated w prn pain/anxiety meds prior to extubation- see NOV. Pt. terminally extubated @ 1639 by
RT. No spontaneous heart tones or breaths noted and pt. pronounced by Dr. Rose @ 1649.
--- NOTE | 2024-10-27 17:43 | W.PN.DEATH ---
Pronouncement of
-
Called to see patient to pronounce.
No spontaneous heart tones or respirations noted.
Patient not responsive to verbal stimuli.
Patient is pronounced .
Time of : 16:49
Date of : 10/27/24
Cause of : Multisystem Organ Failure
Family Notified: Yes
--- NOTE | 2024-10-27 19:07 | PTCARENOTE ---
GOL notified. Post mortem care provided and pt. discharged to [facility] via stretcher. No further needs from this RN.
--- NOTE | 2024-10-27 19:11 | W.DCSUMMARY ---
Discharge Summary
Discharge Data
Date of Admission: 10/25/24
Date of Discharge: 10/27/24
Total time spent discharging patient (in min): >30m
-
Pending Results: No
Hospital Course
Discharging Physician : Dr. Ankur Rose, Dr. Bobby Artis
Disposition :
Primary care physician : Kavon Andres
Principal Discharge diagnosis : Multisystem Organ Failure, Septic Shock, Pneumonia, Cardiac Arrest, Altered Mental Status, NSTEMI
Chronic Discharge diagnosis : Paroxysmal Afib, HFpEF, ITP, NIDDM, Anemia, COPD, Essential Hypertension, Sleep Apnea, Rheumatoid arthritis, Gout, Hypothyroidism
Hospital Course :
Jose Miguel Jade arrived [facility] from [facility] via ambulance, accompanied by and son, for complaints of altered mental status and worsening hypoxia. Of note, he is not known to our system. Requests were made for records from [facility] for a recent hospitalization for Pneumonia, from which he was discharged one day prior to presentation. Jose Miguel arrived unresponsive and on BiPAP. Initial labs were drawn which demonstrated a severely elevated troponin level,
ProBNP of >25,000, lactic acidosis, elevated transaminases, leukocytosis, anemia, hypercapnic respiratory failure, among others. He was initially managed with presumed sepsis from pneumonia and an NSTEMI. Blood cultures were drawn, fluids were
given, empiric antibiotics were started. His respiratory status seemed to stabilize for a brief period after admission. Unfortunately, he quickly became unresponsive and went into asystole. ROSC was achieved and the patient was intubated and
admitted to ICU. He remained on sedation, pressors and in tenuous physical condition with continuing degradation of multiple organ systems including his liver (AST/ALT >7500), kidneys (Acute Tubular Necrosis, Oliguria), respiratory system
(intubation, mechanical ventilation, supplementary oxygen) and cardiovascular system (requiring IV pressors, rate control medication). He had many bleeding skin lesions present on admission which continued to bleed throughout his hospital stay,
including from peripheral access. He was transfused a total of 2 units of pRBCs and 2 units of FFP with minimal improvement and continuing drops in Hgb/platelets. Eventually he developed myoclonus for which an EEG and repeat head CT were done
(reports below). Throughout his hospital stay he was cared for by the sack lifter/pulmonary, cardiology, nephrology, hematology/oncology, infectious disease, neurology, and hospitalist teams.
Several discussions were had with his family throughout his admission regarding expectations and grim prognosis. Eventually, the family chose to transition the patient to hospice/comfort care. He was extubated, taken off pressors, and passed soon
thereafter. The family was counselled on next steps and given resources.
Important imaging findings :
CR Chest Portable - 1 View:
Moderate left lower lobe and mild right lower lobe findings suggesting pneumonia. Clinical and laboratory correlation recommended. Small left pleural effusion.
CT Head W/o Iv Contrast:
No acute intracranial abnormality noted.
Mild atrophy.
Mild periventricular small vessel ischemic disease.
Mild nonacute sinusitis.
CT Chest/abd/pel Wo Iv Cont:
CHEST:
1. SEVERE RIGHT LOWER LOBE PNEUMONIA (possibly aspiration pneumonia considering endobronchial occlusion of the right lower lobe).
2. Mild left lower lobe pneumonia.
3. Small left pleural effusion.
4. Layering secretions in the distal trachea.
5. Mild mosaic attenuation in the upper lobes suggesting obstructive small airways disease.
6. Mild cardiomegaly.
7. Previous aortic valve replacement.
8. Chronic midline sternotomy dehiscence.
9. Acute superior endplate fracture of T9.
ABDOMEN and PELVIS:
1. Acute hematoma in the left obturator internus muscle and small acute retroperitoneal hematoma in the left iliopsoas muscle.
2. Severe calcific atherosclerotic plaque in the abdominal aorta, iliac, and femoral arteries.
3. Fusiform infrarenal abdominal aortic aneurysm (3.3 cm AP dimension).
4. Severe calcific atherosclerotic plaque in the proximal superior mesenteric and right common iliac arteries causing greater than 70% diameter stenoses.
5. Moderate chronic bilateral renal disease.
6. Moderate diverticulosis in the sigmoid colon.
7. Moderate fecal material in the rectum.
8. Moderate size fat-containing umbilical hernia.
9. Bearden catheter in urinary bladder.
10. Bilateral avascular necrosis of the femoral heads.
CR Chest Portable - 1 View:
1. Endotracheal tube in appropriate position.
2. Suggestion of a nasogastric tube coiled in the distal esophagus (although this could also be a different catheter or a tube external to the patient).
3. Large dense right lower lobe airspace consolidation (probably severe pneumonia).
4. Moderate left lower lobe airspace consolidation.
5. Small left pleural effusion.
6. Mild cardiomegaly.
7. Previous aortic valve replacement and CABG surgery.
CR Chest Portable - 1 View:
1. LARGE LEFT LOWER LOBE AIRSPACE CONSOLIDATION which appears to have increased (either increasing atelectasis or pneumonia with aspiration/mucous plugging of the left lower lobe bronchus a diagnostic possibility). Small left pleural effusion
appears unchanged.
2. SEVERE RIGHT LOWER LOBE PNEUMONIA which appears unchanged.
3. Mild cardiomegaly.
4. Previous aortic valve replacement and CABG surgery.
5. Suspected nasogastric tube coiled in the esophagus (although this could also be a different catheter or tube overlying the patient).
CR Abdomen, Portable - 1 View:
1. Nasogastric tube extending to the level of the gastroesophageal junction and 'doubling back' to terminate in the distal esophagus.
2. Large bilateral lower lobe airspace consolidations.
3. Small left pleural effusion.
4. Severe calcific atherosclerotic plaque in the thoracic and abdominal aorta.
5. Previous aortic valve replacement.
CR Abdomen, Portable - 1 View:
1. Nasogastric tube coiled in the esophagus.
2. Mild to moderate air distention of the stomach.
3. Large bilateral lower lobe airspace consolidations.
4. Small left pleural effusion.
5. Previous aortic valve replacement.
6. Severe calcific atherosclerotic plaque in the thoracic and abdominal aorta.
CR Abdomen, Portable - 1 View:
Bowel: Marked paucity of abdominal intestinal bowel gas is seen.
Soft tissues: Nasogastric tube extending into the abdomen with tip most likely in distal stomach, coiled back upon itself.
Osseous structures: No gross acute osseous abnormalities.
CT Head W/o Iv Contrast:
No acute intracranial abnormalities.
Findings again seen compatible with diffuse cortical atrophy with nonspecific white matter changes as described above.
Echocardiography Report:
Normal left ventricular size and systolic function. No regional wall motion abnormalities are seen. LV ejection fraction is 60-65% by visual assessment.
Moderate to severe left ventricular hypertrophy. Diastolic function indeterminate. Normal right ventricular size. Normal right ventricular systolic function. Thickened calcified, restricted mitral valve leaflets. Moderate mitral stenosis (At heart
rate of 79 bpm.). Peak gradient 17 mmHg. Mean gradient is 9mmHg. The valve area by pressure half time is 1.5cm sq. Trace mitral regurgitation. Normally functioning bioprosthetic valve. Peak/mean gradients are 21/9mmHg. Trivial aortic
regurgitation. Mild tricuspid regurgitation. Estimated pulmonary artery pressure of 80-85 mmHg. Assuming a right atrial pressure of 8 mmHg.
Electroencephalogram Report:
Moderately abnormal EEG for age due to diffuse bihemispheric slowing.
This study was suggestive of diffuse cortical dysfunction without focal abnormality. No seizures were recorded.
Clinical correlation is advised.
Procedure findings :
None.
Discharge Plan
-
Patient Disposition:
Date/Time
Date/Time: 10/27/24 16:49
Discharge Date and Time
Discharge Date/Time: 10/27/24 16:49
Print Language: SAMI
== END 2024-10-27 16:49 | disposition expired | DRG 871 ==
LOC: ICU 19:51
PROVIDERS: Nurse Practitioner Primary Care; ADMITTING PHYSICIAN Internal Medicine; ATTENDING PHYSICIAN Internal Medicine; CONSULT PHYSICIAN Internal Medicine; CONSULT PHYSICIAN Internal Medicine Cardiovascular Disease; CONSULT PHYSICIAN Internal Medicine Critical Care Medicine; CONSULT PHYSICIAN Internal Medicine Hematology & Oncology; CONSULT PHYSICIAN Psychiatry & Neurology Neurology; CONSULT PHYSICIAN Student in an Organized Health Care Education/Training Program; EMERGENCY PHYSICIAN Emergency Medicine; FAMILY PHYSICIAN Family Medicine
PROC: 5A09357 Assistance with Respiratory Ventilation, Less than 24 Consecutive Hours, Continuous Positive Airway Pressure (ICD-10-PCS; 2024-10-25)
PROC: 5A1945Z Respiratory Ventilation, 24-96 Consecutive Hours (ICD-10-PCS; 2024-10-25)
PROC: 0BH18EZ Insertion of Endotracheal Airway into Trachea, Via Natural or Artificial Opening Endoscopic (ICD-10-PCS; 2024-10-25)
PROC: 30233N1 Transfusion of Nonautologous Red Blood Cells into Peripheral Vein, Percutaneous Approach (ICD-10-PCS; 2024-10-26)
PROC: 30233K1 Transfusion of Nonautologous Frozen Plasma into Peripheral Vein, Percutaneous Approach (ICD-10-PCS; 2024-10-26)
DX: A41.9 Sepsis, unspecified organism (principal); G93.41 Metabolic encephalopathy; I21.4 Non-ST elevation (NSTEMI) myocardial infarction; J18.9 Pneumonia, unspecified organism; N17.0 Acute kidney failure with tubular necrosis; R65.21 Severe sepsis with septic shock; K72.00 Acute and subacute hepatic failure without coma; I50.33 Acute on chronic diastolic (congestive) heart failure; Z51.5 Encounter for palliative care; Z66 Do not resuscitate; J96.21 Acute and chronic respiratory failure with hypoxia; J96.02 Acute respiratory failure with hypercapnia; I13.0 Hypertensive heart and chronic kidney disease with heart failure and stage 1 through stage 4 chronic kidney disease, or unspecified chronic kidney disease; F11.20 Opioid dependence, uncomplicated; D69.3 Immune thrombocytopenic purpura; E87.1 Hypo-osmolality and hyponatremia; E87.20 Acidosis, unspecified; G93.1 Anoxic brain damage, not elsewhere classified; Z99.11 Dependence on respirator [ventilator] status; I48.92 Unspecified atrial flutter; I48.0 Paroxysmal atrial fibrillation; G47.33 Obstructive sleep apnea (adult) (pediatric); E11.22 Type 2 diabetes mellitus with diabetic chronic kidney disease; E03.9 Hypothyroidism, unspecified; E78.00 Pure hypercholesterolemia, unspecified; M06.9 Rheumatoid arthritis, unspecified; J44.89 Other specified chronic obstructive pulmonary disease; D63.1 Anemia in chronic kidney disease; F17.210 Nicotine dependence, cigarettes, uncomplicated; G25.3 Myoclonus; G89.4 Chronic pain syndrome; I08.0 Rheumatic disorders of both mitral and aortic valves; I25.10 Atherosclerotic heart disease of native coronary artery without angina pectoris; R29.6 Repeated falls; N18.30 Chronic kidney disease, stage 3 unspecified; I46.9 Cardiac arrest, cause unspecified; Z79.82 Long term (current) use of aspirin; Z79.52 Long term (current) use of systemic steroids; Z79.01 Long term (current) use of anticoagulants; Z79.890 Hormone replacement therapy; Z79.84 Long term (current) use of oral hypoglycemic drugs; Z86.711 Personal history of pulmonary embolism; Z86.718 Personal history of other venous thrombosis and embolism; Z95.1 Presence of aortocoronary bypass graft; Z95.3 Presence of xenogenic heart valve; Z95.5 Presence of coronary angioplasty implant and graft; Z79.899 Other long term (current) drug therapy
CPT/HCPCS: 51702; 70450; 71045; 71250; 74018; 74176; 80048; 80053; 80202; 81003; 81015; 82140; 82533; 82607; 82728; 82746; 82805; 82962; 82977; 83036; 83540; 83550; 83605; 83735; 83880; 84100; 84443; 84484; 85014; 85018; 85025; 85027; 85384; 85610; 85730; 86850; 86900; 86901; 86920; 87040; 87070; 87205; 87449; 87502; 87641; 87811; 87899; 93005; 93306; 94002; 94003; 94640; 95816; 96365; 96366; 96367; 96375; 99291; 99292; P9016; P9059